=== PATIENT | female | born 1960 | race Caucasian/White ===

== ENCOUNTER 2025-07-08 03:16 | Inpatient (IN) | payer MEDICAID, SELFPAY ==
[2025-07-08] VITALS (40 sets, daily range): BP systolic 86–149; BP diastolic 62–110; PULSE 89–132; RESP 11–28; TEMP 36–36.7; O2SAT 55–98; BMI 24.3; BMI 23.5
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
--- NOTE | 2025-07-08 03:31 | EKG12_ITS ---
Test Reason : DYSRHYTHMIA Blood Pressure : */* mmHG Vent. Rate : 131 BPM Atrial Rate : 131 BPM P-R Int : 146 ms QRS Dur : 80 ms QT Int : 296 ms P-R-T Axes : 83 43 74 degrees QTcB Int : 437 ms Sinus tachycardia Possible Left atrial enlargement Nonspecific ST and T wave abnormality Abnormal ECG Confirmed by Omar Casanova ([id number]), editor managing newspaper REMI ALCARAZ ([id number]) on 07/10/2025 8:08:23 AM Referred By: NI Confirmed By: Omar Casanova
--- NOTE | 2025-07-08 03:31 | CT_ITS ---
PROCEDURE: CTA CHEST W/WO CONTRAST 07/08/2025 REASON FOR EXAM: HYPOXIA TECHNIQUE: Procedure Code: [id number] Modality: CT Procedure: CTA CHEST W/WO CONTRAST Multiplanar Sagittal and Coronal images were obtained. CONTRAST: isovue 370 VOLUME: 100 mL One or more dose reduction techniques were used (e.g., Automated exposure control, adjustment of the mA and/or kV according to patient size, use of iterative reconstruction technique). RADIATION DOSE SUMMARY: CTDI Vol 8.61 mGy DLP :291.94 mGycm COMPARISON: none FINDINGS: No evidence of any filling defect in the main pulmonary trunk and bilateral main pulmonary arteries, segmental and subsegmental pulmonary arteries to suggest acute or chronic pulmonary embolism. Dilated pulmonary artery and its branches. Patent ectatic thoracic aorta showing atherosclerotic changes. No intraluminal hypodense thrombi, dissecting intimal flaps or significant aneurysmal dilatation. No obvious cardiac abnormalities. Mild right and minimal left pleural effusion showing small fissural extension. Bilateral pulmonary patchy parenchymal veiling with smooth interlobular septae & scattered atelectatic plates. Findings are worrisome of pulmonary edema. Advise clinical correlation. Diffuse bilateral pulmonary interstitial and peribronchial thickening with cystic changes and areas of honeycombing, possibly interstitial lung disease. Bilateral pulmonary emphysema. No pathologically enlarged lymph nodes. Scanned osseous structures show Spondylotic changes with multilevel reduced vertebral bodies height. CT/CTA Chest W/WO Contrast IMPRESSION: No obvious pulmonary arterial thromboembolism. Mild right and minimal left pleural effusion showing small fissural extension. Bilateral pulmonary patchy parenchymal veiling with smooth interlobular septae & scattered atelectatic plates. Findings are worrisome of pulmonary edema. Advise clinical correlation. Diffuse bilateral pulmonary interstitial and peribronchial thickening with cyst ic changes and areas of honeycombing, possibly interstitial lung disease. Bilateral pulmonary emphysema. Reading Location: [facility] [address]
[2025-07-08 03:47] LABS: Hematocrit 42.2 % (37-47); Hemoglobin 15.0 g/dL (12.0-15.0); Immature Granulocytes Count 0.070 X10^3/uL (0.0-0.0); Mean Corp Hgb Conc 35.5 g/dL (32-36); Mean Corpuscular Volume 92.3 fL (81-99); Mean Platelet Vol. 12.9 fl (6.2-12.0); NRBC Flagged by Analyzer 0 % (0-5); Platelet Count 218 K/mm3 (150-450); RBC Distribution Width CV 12.5 % (11.6-14.6); RBC Distribution Width SD 42.5 fl (35.1-43.9); Red Blood Count 4.57 M/mm3 (4.2-5.4); White Blood Count 16.7 K/mm3 (4.4-11.0)
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
[2025-07-08 03:57] LABS: Partial Thromboplast Time 27.0 Seconds (24.1-36.2); Prothrombin Time (Protime)PT. 14.4 SECONDS (11.7-14.9)
--- NOTE | 2025-07-08 04:03 | ED.RN ---
This RN notified Dr. Andres of the patient continuing to be at 85% on 6L NC, the patient was put on 15L non-rebreather and called RT to initiate the patient on BiPAP. This RN had a lengthy conversation with the patient to educate the patient on the importance of BiPAP and keeping the mask on to help the patient's breathing and overall condition.
--- NOTE | 2025-07-08 04:11 | ED.RN ---
This RN attempted to do the patient's medication list and the patient was unable to tell this RN what medications the patient is on, nor why the patient is on. The patient states, I don't know I take something for my thyroid. The patient was unsure of the medication name or the dosage of the medication.
[2025-07-08 04:14] LABS: Magnesium 1.8 mg/dL (1.5-2.2)
[2025-07-08 04:18] LABS: Troponin T High Sensitivity 973 ng/L (<=14)
[2025-07-08 04:31] LABS: Anion Gap 21 (7-18); BUN 11 mg/dL (4-19); BUN/Creat Ratio 10.7 RATIO (10-20); Calcium,Total 9.8 mg/dL (7.6-11.0); Carbon Dioxide 15.1 mmol/L (20.0-29.0); Chloride 87 mmol/L (96-106); Estimated Creatinine Clearance 57.91 ml/min (50-250); Glucose 153 mg/dL (70-99); Potassium 4.0 mmol/L (3.5-5.1); Pro- Brain NATRIURETIC PEPTIDE 1598 pg/mL (<=900)
[2025-07-08 05:54] LABS: Troponin T High Sens 2 HR 1048 ng/L (<=14)
[2025-07-08] MEDS: HEPARIN/D5w 25,000 UNITS 25,000 UNITS/250 ML IV.SOLN. 8.7 UNITS CONT INF (06:12)
[2025-07-08] MEDS: Heparin Injection (Vial) 5,000 UNIT/ML VIAL 4000 UNIT IV (06:12)
--- NOTE | 2025-07-08 07:43 | HP.PCM.HOS_ITS ---
HPI - General General Date of Admission: 07/08/25 Chief Complaint: Shortness of breath HPI Narrative JAY HANCOCK, is a 65 F who presents severe shortness of breath and hypoxemia. Patient has medical history of emphysema and she quit smoking few years ago, not on home oxygen. She comes in with severe shortness of breath, cough with sputum and occasional wheezing. In the ED she was very hypoxemic requiring BiPAP, she was very anxious requiring couple of doses of Ativan while on BiPAP. CTA showed no PE but showed severe emphysematous changes as well as changes of interstitial lung disease with honeycombing in addition to possibility of pulmonary edema. EKG shows sinus tachycardia rate 131, incomplete right bundle branch block and upsloping ST segment depression with no T wave inversions Troponins around 1000 Cardiology was contacted and recommended heparin. Patient initially received loading dose of aspirin. She denies chest pain Patient will be admitted to ICU for respiratory failure, COPD exacerbation, and possible NSTEMI type I versus type II [facility] Medical History unable to obtain Home Medications ?Medication ?Instructions ?Recorded ?Last Taken ?Type Unobtainable 07/08/25 Unknown History Allergy/AdvReac Type Severity Reaction Status Date / Time No Known Allergies Allergy Verified 07/08/25 03:21 Family History unable to obtain Surgical History unable to obtain Social History Smoking Status: Current every day smoker tobacco type: cigarettes ROS Constitutional Constitutional: Denies fever(s) or poor appetite ENT HEENT: Reports none Cardiovascular Cardiovascular: Reports dyspnea; Denies chest pain Respiratory/Chest Respiratory/Chest: Reports cough; Denies wheezing Gastrointestinal Gastrointestinal: Denies abdominal pain or change in bowel habits Genitourinary Genitourinary: Denies change in urinary stream or dysuria Musculoskeletal Musculoskeletal: Denies arthralgias or myalgias Integumentary Integumentary: Reports none Neurologic Neurologic: Denies abnormal speech, dizziness, focal weakness, loss of vision or numbness Hematologic/Lymphatic Hematologic/Lymphatic: Reports none Patient's Goals Of Care . What would you like to achieve or improve as a result of your hospital stay?: G et better Vital Signs Vital Signs Vital Signs: 07/08/25 03:18 07/08/25 03:18 07/08/25 03:19 Temperature 97.8 F Temperature Source Oral Pulse Rate 129 H Respiratory Rate 22 H Respiratory Effort Short of Breath Labored Respiratory Depth Shallow Respiratory Pattern Tachypnea Blood Pressure 146/110 H Blood Pressure Mean 122 Pulse Ox 85 70 Oxygen Delivery Method Nasal Cannula Nasal Cannula Room Air Oxygen Flow Rate (L/min) 6 Fraction of Inspired Oxygen (FIO2) 07/08/25 03:19 07/08/25 03:55 07/08/25 04:00 Temperature Temperature Source Pulse Rate 132 H Respiratory Rate Respiratory Effort Short of Breath Labored Respiratory Depth Respiratory Pattern Tachypnea Blood Pressure 149/62 H Blood Pressure Mean 91 Pulse Ox 85 Oxygen Delivery Method Nasal Cannula Oxygen Flow Rate (L/min) 6 Fraction of Inspired Oxygen (FIO2) 07/08/25 04:03 07/08/25 04:07 07/08/25 04:07 Temperature Temperature Source Pulse Rate 124 H Respiratory Rate 21 H Respiratory Effort Respiratory Depth Respiratory Pattern Tachypnea Blood Pressure Blood Pressure Mean Pulse Ox 92 92 92 Oxygen Delivery Method Non-Rebreather Bi-pap Oxygen Flow Rate (L/min) 15 Fraction of Inspired Oxygen (FIO2) 40 40 07/08/25 04:30 07/08/25 05:00 07/08/25 05:42 Temperature Temperature Source Pulse Rate 124 H 120 H 119 H Respiratory Rate 24 H 20 H 28 H Respiratory Effort Respiratory Depth Respiratory Pattern Tachypnea Blood Pressure 110/96 H 120/103 H Blood Pressure Mean 100 108 Pulse Ox 92 93 94 Oxygen Delivery Method Bi-pap Bi-pap Oxygen Flow Rate (L/min) Fraction of Inspired Oxygen (FIO2) 50 07/08/25 06:00 07/08/25 06:38 07/08/25 07:00 Temperature 97.7 F L Temperature Source Pulse Rate 116 H 108 H 114 H Respiratory Rate 18 18 22 H Respiratory Effort Respiratory Depth Respiratory Pattern Blood Pressure 107/93 H 99/84 H 111/93 H Blood Pressure Mean 97 89 99 Pulse Ox 94 95 92 Oxygen Delivery Method Bi-pap Room Air Oxygen Flow Rate (L/min) Fraction of Inspired Oxygen (FIO2) Weight Weight: 72.4 kg Body Mass Index (BMI) 24.3 Physical Exam Const alert and oriented x3 HEENT normocephalic and head/scalp atraumatic Eyes EOMs intact bilaterally; Negative for no scleral icterus Neck supple Resp Resp Narrative: In respiratory distress, on BiPAP, bilateral crackles Cardio Negative for no murmurs Cardio Narrative: Tachycardic GI normal to inspection, nondistended, normoactive bowel sounds; Negative for non- tender no CVA tenderness Extremity no joint enlargement and no pedal edema Skin no rashes or lesions noted Neuro oriented x3 and moves all extremities Results Lab / Micro Data 07/08/25 03:45 07/08/25 03:15 Labs: Laboratory Results - last 24 hr 07/08/25 03:15: Sodium 124 L, Potassium 4.0, Chloride 87 L, Carbon Dioxide 15.1 L, Anion Gap 21 H, BUN 11, Creatinine 0.99, Estim Creat Clear Calc 57.91, Est GFR (MDRD) Non-Af 64, BUN/Creatinine Ratio 10.7, Glucose 153 H, Calcium 9.8, Magnesium 1.8, Troponin T High Sens 973 H*, NT pro BNP II 1598 H, TSH 0.547 07/08/25 03:45: WBC 16.7 H, RBC 4.57, Hgb 15.0, Hct 42.2, MCV 92.3, MCH 32.8 H, MCHC 35.5, RDW Std Deviation 42.5, RDW Coeff of Tabitha 12.5, Plt Count 218, MPV 12.9 H, Immature Gran % (Auto) 0.400, Neut % (Auto) 74.2 H, Lymph % (Auto) 16.1 L, [place] % (Auto) 8.8, Eos % (Auto) 0.1, Baso % (Auto) 0.4, Absolute Neuts (auto) 12.4 H, Absolute Lymphs (auto) 2.69, Nucleated RBC % 0, PT 14.4, INR 1.1, APTT 27.0 07/08/25 05:11: Troponin T Hi Sens 2 Hr 1048 H* Micro: Microbiology 07/08/25 04:00 Mucosa - Nose SARS-CoV-2, Influenza & RSV (PCR) - Final Imaging Radiology Impression Chest CTA 07/08/25 03:31 IMPRESSION: No obvious pulmonary arterial thromboembolism. Mild right and minimal left pleural effusion showing small fissural extension. Bilateral pulmonary patchy parenchymal veiling with smooth interlobular septae & scattered atelectatic plates. Findings are worrisome of pulmonary edema. Advise clinical correlation. Diffuse bilateral pulmonary interstitial and peribronchial thickening with cystic changes and areas of honeycombing, possibly interstitial lung disease. Bilateral pulmonary emphysema. Reading Location: [place] [address] Assessment & Plan Assessment/Plan (1) Acute respiratory failure with hypoxia: (2) Non-ST elevated myocardial infarction (non-STEMI): (3) COPD exacerbation: (4) Anxiety: (5) High anion gap metabolic acidosis: (6) Hyponatremia: PLAN: Plan Admission to ICU Continue BiPAP currently 50% FiO2, to keep O2 saturation 94 to 96% given the underlying coronary ischemia. Check blood gas to make sure she is well compensated for her metabolic acidosis and if there is any hypercapnia IV Precedex to improve tolerance with BiPAP. Aspirin 325 mg x 1, Plavix 300 g x 1, IV heparin, cardiology consultation Blood cultures, sputum cultures, urine Legionella and pneumococcus. CRP and procalcitonin for baseline, to be repeated if abnormal to help de-escalate antibiotics IV cefepime and vancomycin empirically for severe community-acquired pneumonia. IV steroids for the same indication and for COPD exacerbation. Check lactic acid Negative COVID-19, RSV and flu She received 1 dose of Lasix in the ED will monitor response Charges/Coding Visit Charges Inpatient E&M: 12642 Init Hosp L3
[2025-07-08 07:52] LABS: FI02 50.0; RR 12; SITE Not entered; VBG BASE EXCESS -3 mmol/L (-1.0-3.5); VBG PO2 41 mmHg (25-40); VBG SO2 79 % (50-70); VBG TCO2 22 mmol/L (23-33)
[2025-07-08 07:54] LABS: CRP < 3.00 mg/L (0.0-3.0); Troponin T High Sens 4 HR 898 ng/L (<=14)
[2025-07-08 08:03] LABS: Procalcitonin 0.03 ng/mL (<=0.10)
--- NOTE | 2025-07-08 08:30 | ECHOCS_ITS ---
Reason For Study Reason For Study: NSTEMI Procedure This was a 2D Doppler, Color Flow transthoracic echocardiogram. The patient is in sinus rhythm. The patient was scanned supine. Exam performed portable in ICU/CCU. Left Ventricle Normal LV size. Normal left ventricular thickness. The estimated ejection fraction is 25???30 %. Right Ventricle Normal RV size. Normal systolic function. Atria The left and right atria are normal. Mitral Valve Mild diffuse mitral valve thickening. There is no mitral valve stenosis. Mild (1+) mitral valve insufficiency. Tricuspid Valve Normal tricuspid valve. There is no tricuspid stenosis. Mild (1+) tricuspid valve insufficiency. Aortic Valve Trisinus/trileaflet aortic valve. Mild diffuse aortic valve thickening. There is no aortic valve stenosis. Trivial aortic valve insufficiency. Pulmonic Valve The pulmonic valve is not well visualized. There is no pulmonic valvular stenosis. Trivial pulmonic valve insufficiency. Great Vessels Ascending aorta normal size measured at 2.7 cm. Normal sized IVC that collapses with respiration/sniff. Pericardium/Pleural No pericardial effusion. MMode/2D Measurements & Calculations LVIDd: 4.3 cm IVSd: 0.77 cm LVOT diam: 1.8 cm LVIDs: 3.2 cm LVPWd: 0.83 cm LVOT area: 2.6 cm2 RVDd: 2.7 cm FS: 24.7 % LAV(MOD-bp): 34.5 ml LVAd ap4: 20.3 cm2 LVAd ap2: 19.4 cm2 LAV(MOD-bp) Indexed: 18.9 ml/m2 LVLd ap4: 6.7 cm LVLd ap2: 6.4 cm LAV(MOD-sp2): 30.2 ml EDV(MOD-sp4): 50.6 ml EDV(MOD-sp2): 49.9 ml LAV(MOD-sp4): 37.6 ml EDV(sp4-el): 52.2 ml EDV(sp2-el): 49.6 ml LVAs ap4: 16.2 cm2 LVAs ap2: 15.5 cm2 LVLs ap4: 5.7 cm LVLs ap2: 5.4 cm ESV(MOD-sp4): 37.8 ml ESV(MOD-sp2): 36.5 ml ESV(sp4-el): 38.8 ml ESV(sp2-el): 37.9 ml EF(MOD-sp4): 25.4 % EF(MOD-sp2): 26.8 % EF(sp4-el): 25.6 % SV(MOD-sp4): 12.9 ml SV(MOD-sp2): 13.4 ml EDV(MOD-bp): 50.9 ml SI(MOD-sp4): 7.0 ml/m2 SI(MOD-sp2): 7.3 ml/m2 ESV(MOD-bp): 38.4 ml EF(MOD-bp): 24.6 % SV(sp4-el): 13.4 ml Ao sinus diam: 2.9 cm LA A4 area: 14.8 cm2 LA dimension(2D): 3.7 cm RA A4 area: 8.8 cm2 TAPSE: 1.2 cm Time Measurements MV dec time: 0.14 sec Doppler Measurements & Calculations MV E max [place]: 106.7 cm/sec Lat Peak E' [place]: 6.6 cm/sec Med Peak E' [place]: 6.2 cm/sec MV A max [place]: 78.1 cm/sec E/E' lat: 16.2 E/E' med: 17.3 MV E/A: 1.4 Ao V2 max: 95.6 cm/sec LV V1 max: 87.1 cm/sec MV dec slope: 771.2 cm/sec2 Ao max P.7 mmHg LV V1 max P.0 mmHg Ao V2 mean: 77.9 cm/sec LV V1 mean P.7 mmHg Ao mean P.5 mmHg LV V1 mean: 60.2 cm/sec Ao V2 VTI: 14.2 cm LV V1 VTI: 12.5 cm AV (velocity ratio): 0.88 IGGY(I,D): 2.3 cm2 IGGY(V,D): 2.4 cm2 SV(LVOT): 32.7 ml PA V2 max: 60.1 cm/sec TR max [place]: 197.8 cm/sec TR max P.6 mmHg ECHO/Echo Complete Interpretation Summary The estimated ejection fraction is 25???30 %. Mild (1+) mitral valve insufficiency. Mild (1+) tricuspid valve insufficiency. Normal sized IVC that collapses with respiration/sniff. Ordering Physician: Omar Casanova Performed By: Tammy Tamez ZOE
[2025-07-08] MEDS: Albuterol 2.5 MG/3 ML VIAL.NEB. INHALATION (08:44)
--- NOTE | 2025-07-08 09:26 | EX.PCM.CONCC ---
Assessment & Plan Assessment/Plan (1) Acute hypoxemic respiratory failure: PLAN: Plan RECOMMENDATIONS: 1. Continue to wean FiO2 to maintain saturations at or above 90%. 2. Check respiratory viral panel. 3. Scheduled bronchodilators and steroids. 4. Consider diuresis, as tolerated by hemodynamics and renal function. 5. Continue heparin infusion, pending evaluation by cardiology. 6. Await results of echocardiogram. IMPRESSIONS: 1. Acute hypoxemic respiratory failure Clinical concern for multifactorial etiology with COPD exacerbation and NSTEMI contributing. I do not see anything focal on CT imaging of the chest to suggest pneumonia. Therefore, the patient will be continued on bronchodilators and steroids while awaiting additional cardiac workup. FiO2 will be weaned to maintain saturations at or above 90%. Will check respiratory viral panel as well. Depending on the results of the echocardiogram, consideration can be given to initiation of diuretic therapy. 2. NSTEMI Unclear if this is the primary event versus secondary to presenting hypoxemia. Echocardiogram is pending with cardiology consultation underway. Tentatively, the patient is being considered for coronary angiography on Sunday. 3. History of tobacco dependency, in remission/anxiety/panic attacks Complicates care, management, recovery and prognosis. Continue supportive measures as noted above. This note was generated with 1[employer] dictation software. It may contain incorrect words, spelling, and punctuation that were not noted in checking the note before signing. HPI Consult Data Date of Consult: 07/08/25 HPI Narrative Reason for Consultation: Acute respiratory failure HPI Narrative: The patient is a 65-year-old female, with a history as outlined below, who presented to the emergency department on July 07 with complaints of shortness of breath. The patient has an extensive tobacco abuse history, having smoked approximately 1 pack of cigarettes per day since the age of [age] years old, but indicated that she quit smoking completely 2 years ago. She reported that she was referred to a pulmonary provider by her PCP in [place] and underwent testing, which apparently demonstrated mild emphysema. She does not utilize supplemental oxygen at her baseline. She does have access to bronchodilator therapy, but indicated that the medication has never provided any symptom relief. The patient does have associated anxiety and occasional panic attacks. On presentation to the emergency department, the patient was noted to be afebrile but was notably tachycardic and tachypneic. Blood pressures were otherwise stable. Laboratory evaluation revealed a white blood cell count of 17,000. Coagulation profile was within normal limits. Chemistry profile was notable for a sodium of 124 with a chloride of 87 and creatinine of 0.9. Lactate was normal at 1.4. Troponin was increased at 973 with a BNP of 1598. Procalcitonin was within normal limits. TSH was normal. CTA chest was negative for pulmonary embolism but did reveal background emphysematous changes with interstitial septal thickening concerning for interstitial lung disease. The patient was ultimately placed on heated high flow oxygen along with a weight-based heparin infusion, bronchodilators and steroids. She was admitted to the medical intensive care unit for further management. [facility] Medical History unable to obtain Home Medications ?Medication ?Instructions ?Recorded ?Last Taken ?Type Unobtainable 07/08/25 Unknown History Allergy/AdvReac Type Severity Reaction Status Date / Time No Known Allergies Allergy Verified 07/08/25 03:21 Family History unable to obtain Surgical History unable to obtain Social History Smoking Status: Current every day smoker tobacco type: cigarettes ROS ROS Narrative 10 systems were reviewed with pertinent positives as noted in the HPI above. Physical Exam Const alert, oriented x3 and no apparent distress HEENT normocephalic, head/scalp atraumatic and moist oral mucous membranes Eyes PERRL, EOMs intact bilaterally and conjunctivae normal Neck supple General: trachea midline Chest inspection of chest normal Resp normal respiratory effort and no use of accessory muscles Effort and Inspection: able to speak in complete sentences Auscultation: rales and diminished lung sounds Cardio S1 normal heart sound and S2 normal heart sound Rate: tachycardic GI normal to inspection, nondistended, normoactive bowel sounds Extremity no clubbing, cyanosis or edema Skin no rashes or lesions noted Neuro CN's II-XII intact bilaterally, moves all extremities and no focal motor deficits Psych cooperative and affect normal Lab / Micro Data 07/08/25 03:45 07/08/25 03:15 Labs: Laboratory Results - last 24 hr 07/08/25 03:15: Sodium 124 L, Potassium 4.0, Chloride 87 L, Carbon Dioxide 15.1 L, Anion Gap 21 H, BUN 11, Creatinine 0.99, Estim Creat Clear Calc 57.91, Est GFR (MDRD) Non-Af 64, BUN/Creatinine Ratio 10.7, Glucose 153 H, Calcium 9.8, Magnesium 1.8, Troponin T High Sens 973 H*, NT pro BNP II 1598 H, TSH 0.547 07/08/25 03:45: WBC 16.7 H, RBC 4.57, Hgb 15.0, Hct 42.2, MCV 92.3, MCH 32.8 H, MCHC 35.5, RDW Std Deviation 42.5, RDW Coeff of Tabitha 12.5, Plt Count 218, MPV 12.9 H, Immature Gran % (Auto) 0.400, Neut % (Auto) 74.2 H, Lymph % (Auto) 16.1 L, [place] % (Auto) 8.8, Eos % (Auto) 0.1, Baso % (Auto) 0.4, Absolute Neuts (auto) 12.4 H, Absolute Lymphs (auto) 2.69, Nucleated RBC % 0, PT 14.4, INR 1.1, APTT 27.0 07/08/25 05:11: Troponin T Hi Sens 2 Hr 1048 H* 07/08/25 07:15: Troponin T Hi Sens 4Hr 898 H*, C-React Prot Ext Range < 3.00 07/08/25 07:30: Lactic Acid 1.4, Procalcitonin 0.03 Micro: Microbiology 07/08/25 04:00 Mucosa - Nose SARS-CoV-2, Influenza & RSV (PCR) - Final ABG Data ABG results: ABG 07/08/25 07:48 Specimen Type GEETA Sample Site Not entered O2 % 50.0 VBG pH 7.44 H VBG pO2 41 H VBG HCO3 21 L VBG Total CO2 22 L VBG O2 Sat (Calc) 79 H VBG Base Excess -3 L POC Mix VBG pCO2 Pt Tmp 30.4 L Respiration Rate 12 O2 Delivery Device Not entered Imaging Radiology Impression Chest CTA 07/08/25 03:31 IMPRESSION: No obvious pulmonary arterial thromboembolism. Mild right and minimal left pleural effusion showing small fissural extension. Bilateral pulmonary patchy parenchymal veiling with smooth interlobular septae & scattered atelectatic plates. Findings are worrisome of pulmonary edema. Advise clinical correlation. Diffuse bilateral pulmonary interstitial and peribronchial thickening with cystic changes and areas of honeycombing, possibly interstitial lung disease. Bilateral pulmonary emphysema. Reading Location: [facility] Charges/Coding Visit Charges Inpatient E&M: 15619 Init Hosp L3
--- NOTE | 2025-07-08 09:33 | PCM.HOSP.N ---
Hospitalist Note Patient was seen and examined briefly in ICU today, she is currently on Airvo, I talked with critical care about seeing the patient and they agreed to participate in her care. I talked briefly with cardiology, the plan appears to be to proceed with a cardiac catheterization this Sunday if the patient's respiratory status will tolerate the procedure. Patient indicated that she would not be against having this procedure done. At this time, patient continues to produce mucoid sputum, she is on Airvo at this time and appears comfortable at rest. Echocardiogram was performed today and results are pending at the time of this dictation. Continue bronchodilator treatment, IV corticosteroids, and empiric antibiotic coverage. Patient was given clopidogrel and placed on aspirin by the admitting hospitalist. 1 dose of IV furosemide was administered. Patient is currently on a heparin drip, she does not complain of any chest pain except when coughing. Adjustments to her medications will be made by critical care and cardiology.
[2025-07-08] MEDS: Cefepime HCl 2 GM in 0.9% Normal Saline (100mL MB+) 100 ML IV ×3 (09:35→21:54)
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
[2025-07-08] MEDS: Pantoprazole Sodium 40 MG in 0.9% Normal Saline (100mL MB+) 100 ML 300 MG IV (10:13)
[2025-07-08] MEDS: 0.9% Saline Lock 10 ML Syringe IV ×3 (10:13→23:53)
[2025-07-08] MEDS: Vancomycin HCl 1,000 MG in 0.9% Normal Saline (250mL Bag) 250 ML 250 MG IV (10:19)
--- NOTE | 2025-07-08 11:18 | PCM.RX.CS ---
Consult Antibiotic Management Pharmacy has been consulted to manage selected antibiotic: Vancomycin Type of Intervention Type of Consult: New start Suspected Infection Suspected Infection: Pneumonia Labs Labs: Sodium 124 mmol/L (135-145) L 07/08/25 03:15 Potassium 4.0 mmol/L (3.5-5.1) 07/08/25 03:15 Chloride 87 mmol/L (96-106) L 07/08/25 03:15 Carbon Dioxide 15.1 mmol/L (20.0-29.0) L 07/08/25 03:15 Anion Gap 21 (7-18) H 07/08/25 03:15 BUN 11 mg/dL (4-19) 07/08/25 03:15 Creatinine 0.99 mg/dL (0.70-1.20) 07/08/25 03:15 Est GFR (MDRD) Non-Af 64 (>60) 07/08/25 03:15 BUN/Creatinine Ratio 10.7 RATIO (10-20) 07/08/25 03:15 Glucose 153 mg/dL (70-99) H 07/08/25 03:15 Microbiology Microbiology: Microbiology 07/08/25 04:00 Mucosa - Nose SARS-CoV-2, Influenza & RSV (PCR) - Final Dosing Weight Weight used for dosin.1 kg Estimated Creatinine Clearance Estimated Creatinine Clearance: 57.91 Goal Trough Goal Trough: 15-20 mcg/mL Pharmacy Plan for Drug Dosing Pharmacy Plan for Drug Dosing: NEW START IV VANCOMYCIN Consulting Physician: Dr. Pichardo Indication: Community-Acquired Pneumonia Goal Trough: 15-20 SrCr: 0.99 CrCl: 57.91 ml/min Comments: Received standard initial dose 1000mg x1 @ 10:19 07/08/25 Vancomycin Dose: 750mg Q12H, next dose @ 22:00 07/08/25 Pending Level: 07/09/25 @ 21:30 Pharmacy Service will continue to monitor and adjust dosing as required. Follow-Up Labs Follow-Up Labs: Trough: Vancomycin (07/09/25 @ 21:30)
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
[2025-07-08 13:03] LABS: Partial Thromboplast Time 144.7 Seconds (24.1-36.2)
[2025-07-08 18:35] LABS: Cholesterol 180 mg/dL (<=200); Low Density Lipoprotein Calc. 69 mg/dL; Triglycerides 64 mg/dL; Very Low Density Lipoprotein 13 mg/dL (5-40); cholesterol:hdl ratio screen 1.83
[2025-07-08 22:35] LABS: Partial Thromboplast Time 30.8 Seconds (24.1-36.2)
[2025-07-08] MEDS: Vancomycin HCl 750 MG in 0.9% Normal Saline (250mL Bag) 250 ML 250 MG IV (22:39)
[2025-07-08] MEDS: Heparin Nomogram Adjustment 5,000 UNIT/ML VIAL IV (23:16)
[2025-07-09] VITALS (30 sets, daily range): BP systolic 61–113; BP diastolic 46–77; PULSE 76–103; RESP 12–45; TEMP 36.3–37.1; O2SAT 50–99; BMI 23.6
--- NOTE | 2025-07-09 00:25 | PCM.HOSP.N ---
Hospitalist Note Pt reported to staff that she takes her sister's valium to control her anxiety while at home. She is requesting Ativan, but d/t concerns regarding her respiratory status, I opted to order hydroxyzine 50mg QHS PRN.
[2025-07-09] MEDS: hydrOXYzine PAM 25 MG Capsule 50 MG PO (00:33)
[2025-07-09] MEDS: Cefepime HCl 2 GM in 0.9% Normal Saline (100mL MB+) 100 ML IV ×3 (05:18→21:22)
[2025-07-09] MEDS: 0.9% Saline Lock 10 ML Syringe IV (05:18)
[2025-07-09 05:29] LABS: Hematocrit 34.1 % (37-47); Hemoglobin 12.2 g/dL (12.0-15.0); Immature Granulocytes Count 0.060 X10^3/uL (0.0-0.0); Mean Corp Hgb Conc 35.8 g/dL (32-36); Mean Corpuscular Volume 92.4 fL (81-99); Mean Platelet Vol. 13.3 fl (6.2-12.0); NRBC Flagged by Analyzer 0 % (0-5); Platelet Count 117 K/mm3 (150-450); RBC Distribution Width CV 12.8 % (11.6-14.6); RBC Distribution Width SD 43.8 fl (35.1-43.9); Red Blood Count 3.69 M/mm3 (4.2-5.4); White Blood Count 12.1 K/mm3 (4.4-11.0)
[2025-07-09 05:38] LABS: Partial Thromboplast Time 70.0 Seconds (24.1-36.2)
--- NOTE | 2025-07-09 06:49 | PN.HOSP_ITS ---
Reason for Visit Chief Complaint: Shortness of breath Subjective Subjective Patient denies any acute issues. Still has an intermittent cough production of white sputum. States that what we are doing here for is helping her clear out her lungs. We discussed the findings in the echocardiogram and need for cardiac catheterization tomorrow and she voiced understanding. We have been able to wean her oxygen some. Objective Data Objective Data Vital Signs: Vital Signs Temp Pulse Resp BP Pulse Ox O2 Del Method O2 Flow Rate 98.3 F 83 21 H 86/71 L 94 Airvo 50 07/09/25 05:00 07/09/25 05:15 07/09/25 05:15 07/09/25 05:00 07/09/25 05:15 07/09/25 05:00 07/09/25 05:00 FiO2 50 07/09/25 05:15 Oxygen Flow Rate (L/min) 50 Oxygen Delivery Method Airvo Weight: 70.5 kg Body Mass Index (BMI) 23.6 Intake & Output: Intake and Output for Last 24 Hours 07/07/25 07/08/25 07/09/25 23:59 23:59 23:59 Intake Total 1276.08 / 1276.08 150.30 / 150.30 Output Total 800 / 800 950 / 950 Balance 476.08 / 476.08 -799.70 / -799.70 Lab / Micro Data 07/09/25 07:46 07/09/25 07:05 Labs: Laboratory Results - last 24 hr 07/08/25 07:15: Troponin T Hi Sens 4Hr 898 H*, C-React Prot Ext Range < 3.00 07/08/25 07:30: Lactic Acid 1.4, Triglycerides 64, Cholesterol 180, LDL Cholesterol, Calc 69, VLDL Cholesterol 13, HDL Cholesterol 98, Cholesterol/HDL Ratio 1.83, Procalcitonin 0.03 07/08/25 12:30: APTT 144.7 H* 07/08/25 21:19: APTT Cancelled 07/08/25 21:50: APTT 30.8 07/09/25 05:13: WBC 12.1 H, RBC 3.69 L, Hgb 12.2, Hct 34.1 L, MCV 92.4, MCH 33.1 H, MCHC 35.8, RDW Std Deviation 43.8, RDW Coeff of Tabitha 12.8, Plt Count 117 L, M PV 13.3 H, Immature Gran % (Auto) 0.500, Neut % (Auto) 83.5 H, Lymph % (Auto) 8.0 L, Coffee % (Auto) 7.9, Eos % (Auto) 0.0, Baso % (Auto) 0.1, Absolute Neuts (auto) 10.1 H, Absolute Lymphs (auto) 0.97, Nucleated RBC % 0, APTT 70.0 H Micro: Microbiology 07/08/25 11:15 Mucosa - Nasopharyngeal Coronavirus COVID-19 PCR - Final 07/08/25 11:15 Mucosa - Nasopharyngeal Respiratory Panel (PCR) - Final 07/08/25 09:30 Sputum, Expectorated/Coughed Gram Stain - Final 07/08/25 11:30 Urine, Clean Catch Legionella Antigen - Final 07/08/25 11:30 Urine, Clean Catch Streptococcus pneumoniae Antigen (M - Final 07/08/25 04:00 Mucosa - Nose SARS-CoV-2, Influenza & RSV (PCR) - Final ABG Data ABG results: ABG 07/08/25 07:48 Specimen Type GEETA Sample Site Not entered O2 % 50.0 VBG pH 7.44 H VBG pO2 41 H VBG HCO3 21 L VBG Total CO2 22 L VBG O2 Sat (Calc) 79 H VBG Base Excess -3 L POC Mix VBG pCO2 Pt Tmp 30.4 L Respiration Rate 12 O2 Delivery Device Not entered Radiography Diagnostic Testing: Radiology Impression Echocardiogram 07/08/25 08:30 Interpretation Summary The estimated ejection fraction is 25???30 %. Mild (1+) mitral valve insufficiency. Mild (1+) tricuspid valve insufficiency. Normal sized IVC that collapses with respiration/sniff. Ordering Physician: Omar Casanova Performed By: Tammy Tamez RDCS Rhythm Strip Rhythm Strip: Sinus Tach (Sinus tachycardia no other significant arrhythmias appreciated) Physical Exam Const alert, oriented x3, no apparent distress, average body habitus and well nourished; Negative for healthy appearing Constitutional Narrative: Cooperative, upper middle-aged, white female, sitting up in bed watching television, on Airvo, appears older than stated age HEENT head/scalp atraumatic and moist oral mucous membranes HEENT Narrative: Dentures in place, Mallampati 2, no thrush Head and Scalp: normocephalic Eyes conjunctivae normal Eyes Narrative: No scleral icterus Neck supple Neck Narrative: Trachea midline Resp no retractions, no use of accessory muscles and clear to auscultation bilaterally Resp Narrative: Diffusely diminished but clear, no signs of respiratory distress with only mild tachypnea on Airvo at 45 L/min and 45% FiO2 Auscultation: Negative for crackles, rhonchi or wheezes Cardio regular rate, regular rhythm, S1 normal heart sound, S2 normal heart sound, no murmurs, no rub, no gallops and no clicks GI normal to inspection, nondistended, normoactive bowel sounds, soft to palpation and non-tender Extremity no clubbing, cyanosis or edema Extremity Narrative: Decreased lean muscle mass, radial and pedal pulses are 2+ Neuro moves all extremities and no focal motor deficits Speech: speech normal Psych affect normal Psych Narrative: Very pleasant, eye contact good and patient interacts appropriately Assessment & Plan Assessment/Plan (1) Acute hypoxemic respiratory failure: (2) Non-ST elevated myocardial infarction (non-STEMI): (3) Acute HFrEF (heart failure with reduced ejection fraction): (4) Leukocytosis: (5) Thrombocytopenia: PLAN: Plan Acute hypoxic respiratory failure-suspect multifactorial - Patient with signs of acute decompensated heart failure on imaging however exam is not as consistent with this/emphysematous changes noted as well - COVID/flu/RSV unremarkable - Respiratory viral panel unremarkable - Sputum cultures pending but Gram stain seems more consistent with oral mirta - Bumex 2 mg IV x 1 dose - Not oxygen dependent at baseline but currently on Airvo at 45 L/min and 45% FiO2 - Wean as able - Will need ambulatory pulse ox prior to discharge - Continue nebulizers - Continue steroids - Continue I-S and Acapella - Continue empiric antibiotics - Procalcitonin was 0.03 and I do anticipate we should be able to discontinue antibiotics in the next 24 hours once cultures are finalized NSTEMI - Continue aspirin - continue atorvastatin -Lipids were obtained and showed a total cholesterol 180 with an LDL of 69/HDL of 98 and triglyceride of 64 - Blood pressure is too soft right now to initiate any kind of beta-blockade - Echocardiogram shows reduced EF at 25 to 30% with global dysfunction - Plan is for cardiac catheterization tomorrow - Discontinue heparin due to significant drop in platelets - Case discussed with keyboard operator Acute thrombocytopenia - Platelet count normal on arrival at 218,000 - Has had previous heparin exposure with unknown timeframe - Platelet count dropped 50% in the last 24 hours - Concern for HIT with heparin drip being on board--> discussed with cardiology and okay to discontinue heparin drip - Avoid heparin and low molecular weight heparin products - HIT antibody (PF4 heparin antibody) ordered and sent - SCDs initiated for DVT prophylaxis Acute HFrEF - Newly identified reduced ejection fraction at 25 to 30% - Does not appear to be significantly decompensated but imaging is suggestive of some mild volume overload - She also was profoundly hyponatremic at presentation - Will give Bumex x 1 dose - Plan is for ischemic workup with cardiac catheterization tomorrow - Blood pressure too soft currently to tolerate any goal-directed therapy - Continue to monitor - Cardiology is following-->appreciate input Leukocytosis - Suspect related to steroid use - Infectious workup is in progress - Continue antibiotics until cultures are resulted and then discontinue if unremarkable Hyponatremia - 120 on arrival - Was given 1 dose of Lasix and now up to 132 - No further workup currently since improving but may be related to volume overload - TSH is within normal limits Hypothyroidism - Continue levothyroxine COPD - Suspect undiagnosed but patient has emphysematous changes on imaging - Once respiratory status stabilizes will need outpatient PFTs and 6-minute walk test - Continue treatment as noted above - May need chronic inhalers at the time of discharge - Encouraged ongoing tobacco cessation Substance abuse - Patient reported that she takes her sisters Valium on occasion - with respiratory status would avoid benzodiazepines and monitor for any signs of withdrawal - Also reported history of methamphetamine use Tobacco abuse - Recommend cessation DVT prophylaxis - Discontinue heparin drip due to significant drop in platelet counts - SCDs ordered CODE STATUS - Full code Charges/Coding Visit Charges Inpatient E&M: 55879 Subs Hosp L3
[2025-07-09 07:20] LABS: Prothrombin Time (Protime)PT. 14.5 SECONDS (11.7-14.9)
[2025-07-09] MEDS: FLU VACCINE 2025-26(6MOS UP) 45 MCG/0.5 ML SYRINGE IM (07:56)
[2025-07-09] MEDS: Pantoprazole Sodium 40 MG in 0.9% Normal Saline (100mL MB+) 100 ML 330 MG IV (07:56)
[2025-07-09 08:03] LABS: Platelet Count 105 K/mm3 (150-450)
[2025-07-09 08:46] LABS: Magnesium 2.1 mg/dL (1.5-2.2)
[2025-07-09 08:49] LABS: AST(SGOT) 66 U/L (<=31); Alanine Aminotransfer ALT/SGPT 22 U/L (<=34); Albumin, Serum 3.8 g/dL (3.4-4.8); Alkaline Phosphatase 67 U/L (35-104); Anion Gap 11 (7-18); BUN 17 mg/dL (4-19); BUN/Creat Ratio 23.6 RATIO (10-20); Calcium,Total 8.5 mg/dL (7.6-11.0); Carbon Dioxide 19.9 mmol/L (20.0-29.0); Chloride 101 mmol/L (96-106); Estimated Creatinine Clearance 80.75 ml/min (50-250); Globulin 2.1 g/dL (2.2-4.2); Glucose 157 mg/dL (70-99); Potassium 4.8 mmol/L (3.5-5.1)
--- NOTE | 2025-07-09 09:08 | PN.CARD_ITS ---
Subjective Subjective Patient seen and examined reports some fatigue and weakness but denies any other concerning cardiovascular issues. Remains on high flow nasal cannula with fair O2 saturation. Overall hemodynamically stable blood pressure borderline low. Denies any chest pain continues to have some reported mild shortness of breath. New information obtained through further discussion with the patient surrounding her cardiomyopathy and it appears that she reports having a heart attack 1 year ago. She does not remember getting a heart catheterization at that time or being advised that she had cardiomyopathy. She also admits to extensive history of drug abuse including methamphetamine with apparent last use 1 year ago. She states that she started rehab and has not been using any drugs recently except for taking the Adderall recently that was not hers. Objective Data Vital Signs: Vital Signs Temp Pulse Resp BP Pulse Ox O2 Del Method O2 Flow Rate 97.5 F L 94 21 H 91/69 94 Airvo 45 07/09/25 08:00 07/09/25 08:00 07/09/25 08:00 07/09/25 08:00 07/09/25 08:00 07/09/25 08:00 07/09/25 08:00 FiO2 45 07/09/25 08:00 Oxygen Flow Rate (L/min) 45 Oxygen Delivery Method Airvo Weight: 155 lb 6.814 oz Body Mass Index (BMI) 23.6 Intake & Output: Intake and Output for Last 24 Hours 07/07/25 07/08/25 07/09/25 23:59 23:59 23:59 Intake Total 1276.08 / 1276.08 271.74 / 271.74 Output Total 800 / 800 950 / 950 Balance 476.08 / 476.08 -678.26 / -678.26 Lab / Micro Data Attestation: I reviewed the patient's lab results. Lab results narrative: Labs reviewed and pertinent results discussed with the patient 07/09/25 07:46 07/09/25 07:05 Labs: Laboratory Results - last 24 hr 07/08/25 07:05: Phosphorus 2.9 07/08/25 07:30: Triglycerides 64, Cholesterol 180, LDL Cholesterol, Calc 69, VLDL Cholesterol 13, HDL Cholesterol 98, Cholesterol/HDL Ratio 1.83 07/08/25 12:30: APTT 144.7 H* 07/08/25 21:19: APTT Cancelled 07/08/25 21:50: APTT 30.8 07/09/25 05:13: WBC 12.1 H, RBC 3.69 L, Hgb 12.2, Hct 34.1 L, MCV 92.4, MCH 33.1 H, MCHC 35.8, RDW Std Deviation 43.8, RDW Coeff of Tabitha 12.8, Plt Count 117 L, M PV 13.3 H, Immature Gran % (Auto) 0.500, Neut % (Auto) 83.5 H, Lymph % (Auto) 8.0 L, Christian % (Auto) 7.9, Eos % (Auto) 0.0, Baso % (Auto) 0.1, Absolute Neuts (auto) 10.1 H, Absolute Lymphs (auto) 0.97, Nucleated RBC % 0, PT Cancelled 07/09/25 05:13: PT 14.5, INR Cancelled 07/09/25 05:13: INR 1.1, APTT 70.0 H 07/09/25 05:13: APTT Cancelled 07/09/25 07:05: Sodium 132 L, Potassium 4.8, Chloride 101, Carbon Dioxide 19.9 L , Anion Gap 11, BUN 17, Creatinine 0.71, Estim Creat Clear Calc 80.75, Est GFR (MDRD) Non-Af 94, BUN/Creatinine Ratio 23.6 H, Glucose 157 H, Calcium 8.5, Magnesium 2.1, Total Bilirubin 0.65, AST 66 H, ALT 22, Alkaline Phosphatase 67, Total Protein 6.0, Albumin 3.8, Globulin 2.1 L, Albumin/Globulin Ratio 1.8 07/09/25 07:46: Plt Count 105 L Micro: Microbiology 07/08/25 11:15 Mucosa - Nasopharyngeal Coronavirus COVID-19 PCR - Final 07/08/25 11:15 Mucosa - Nasopharyngeal Respiratory Panel (PCR) - Final 07/08/25 09:30 Sputum, Expectorated/Coughed Gram Stain - Final 07/08/25 11:30 Urine, Clean Catch Legionella Antigen - Final 07/08/25 11:30 Urine, Clean Catch Streptococcus pneumoniae Antigen (M - Final 07/08/25 04:00 Mucosa - Nose SARS-CoV-2, Influenza & RSV (PCR) - Final Rhythm Strip Rhythm Strip: Sinus Rhythm (Sinus rhythm with occasional sinus tachycardia. No other significant arrhythmias appreciated) Cardiology Labs/Tests 07/08/25 07:05: Phosphorus 2.9 07/08/25 07:30: Triglycerides 64, Cholesterol 180, VLDL Cholesterol 13, HDL Cholesterol 98, Cholesterol/HDL Ratio 1.83 07/08/25 12:30: APTT 144.7 H* 07/08/25 21:19: APTT Cancelled 07/08/25 21:50: APTT 30.8 07/09/25 05:13: WBC 12.1 H, RBC 3.69 L, Hgb 12.2, Hct 34.1 L, MCV 92.4, MCH 33.1 H, MCHC 35.8, Plt Count 117 L, MPV 13.3 H, Immature Gran % (Auto) 0.500, Neut % (Auto) 83.5 H, Lymph % (Auto) 8.0 L, Christian % (Auto) 7.9, Eos % (Auto) 0.0, Baso % (Auto) 0.1, Absolute Neuts (auto) 10.1 H, Nucleated RBC % 0, PT Cancelled 07/09/25 05:13: PT 14.5, INR Cancelled 07/09/25 05:13: INR 1.1, APTT 70.0 H 07/09/25 05:13: APTT Cancelled 07/09/25 07:05: Sodium 132 L, Potassium 4.8, Chloride 101, Carbon Dioxide 19.9 L , Anion Gap 11, BUN 17, Creatinine 0.71, Est GFR (MDRD) Non-Af 94, B UN/Creatinine Ratio 23.6 H, Glucose 157 H, Calcium 8.5, Magnesium 2.1, Total Bilirubin 0.65 07/09/25 07:46: Plt Count 105 L Rhythm: EKG: ECHO: Stress Test: Cardiac Cath: PCI: CT Surgery: Holter monitor: EPS: PPM: CXR: Chest CT Scan: Radiography Diagnostic Testing: Radiology Impression Echocardiogram 07/08/25 08:30 Interpretation Summary The estimated ejection fraction is 25-30 %. Mild (1+) mitral valve insufficiency. Mild (1+) tricuspid valve insufficiency. Normal sized IVC that collapses with respiration/sniff. Ordering Physician: Omar Casanova Performed By: Tammy Tamez, ZOE Physical Exam Const alert, oriented x3 and no apparent distress Resp normal respiratory effort and clear to auscultation bilaterally Resp Narrative: Decreased breath sounds. No wheezes, rales, or rhonchi appreciated this morning Cardio regular rate, regular rhythm, no murmurs, no rub and no gallops Extremity no pedal edema Psych Psych Narrative: Normal mood and affect Assessment & Plan Assessment/Plan (1) Non-ST elevated myocardial infarction (non-STEMI): PLAN: ? Patient with significantly elevated troponin however multiple potential etiology for elevation. Currently considered likely type II NSTEMI related to hypoxemia as well as CHF exacerbation. ? Echocardiogram with severely reduced ejection fraction estimated at 25-30%. ? Due to thrombocytopenia will discontinue heparin drip. Some concern for HIT. 4 T-score of 4 indicating intermediate risk. ? Long discussion with patient and will proceed with nephro consultation/coronary angiogram tomorrow. Femoral access planned. We discussed the risk, benefit, and alternatives and patient agrees to proceed. Risk including but not limited to , stroke, heart attack, bleeding, infection, damage to the blood vessels, or damage to kidney function potentially requiring dialysis. ? N.p.o. at midnight ? Continue aspirin but will hold off on beta-korey. ? Cardiology will follow (2) Acute on chronic systolic and diastolic heart failure, NYHA class 3: PLAN: ? As noted above echocardiogram notes severely reduced ejection fraction of 25-30%. Suspect this to be possibly related to drug abuse history ? Patient denies having a ischemic evaluation therefore as noted above will plan to proceed with left heart catheterization/coronary angiogram in the face of noted NSTEMI ? Still holding off on GDMT. Blood pressure currently borderline low. Hopefully can start on medications tomorrow. ? No significant volume overload appreciated on physical exam. Will hold off on aggressive diuresis for now however check LVEDP tomorrow and if noted to be elevated can attempt further diuresis. Plan of care discussed with hospitalist team. (3) Acute respiratory failure with hypoxia: PLAN: ? Likely related to COPD exacerbation as well as exacerbation of heart failure ? Wean O2 as tolerated. Appreciate help with management from hospitalist team as well as pulmonology/critical care (4) Thrombocytopenia: PLAN: ? Patient with significant drop in platelet count. As noted above some concern for HIT ? Discontinue heparin drip ? Further workup and evaluation per hospitalist team ? If intervention is required surrounding her coronary artery disease will plan to use bivalirudin PLAN: Plan ? Plan as above continue current treatment. Discontinue heparin drip. Plan for left heart catheterization/coronary angiogram tomorrow ? Further workup and evaluation for potential HIT by hospitalist team. ? Will attempt to obtain records from outside hospital regarding patient's heart attack from last year. Charges/Coding Visit Charges Inpatient E&M: 05949 [facility] Hosp L3
--- NOTE | 2025-07-09 09:10 | PN.CC_ITS ---
Objective Data Objective Data Vital Signs: Vital Signs Last response 3 Temperature 36.4 C L 07/09/25 08:00 Temperature Source Oral 07/09/25 08:00 Pulse Rate 94 07/09/25 08:00 Respiratory Rate 21 H 07/09/25 08:00 Respiratory Effort Normal, Non-Labored 07/09/25 08:00 Respiratory Depth Normal 07/09/25 08:00 Respiratory Pattern Normal 07/09/25 08:00 Blood Pressure 91/69 07/09/25 08:00 Blood Pressure Mean 76 07/09/25 08:00 Blood Pressure Source Monitor 07/09/25 08:00 Blood Pressure Position Semi-Fowlers 07/09/25 08:00 Blood Pressure Location Right Arm 07/09/25 08:00 Pulse Ox 94 07/09/25 08:00 Oxygen Delivery Method Airvo 07/09/25 08:00 Oxygen Flow Rate (L/min) 45 07/09/25 08:00 Fraction of Inspired Oxygen (FIO2) 45 07/09/25 08:00 EtCo2 - Document during CPR and with ROSC 50 07/09/25 04:00 I&O: I&O Last 24 Hours 3 07/08/25 07/08/25 07/09/25 11:59 23:59 11:59 Intake Total 470 / 1276.08 806.08 / 1276.08 271.74 / 271.74 Output Total 800 / 800 950 / 950 Balance 470 / 476.08 6.08 / 476.08 -678.26 / -678.26 I&O: Total Stay 3 07/08/25 03:16 thru 07/09/25 08:55 Intake Total 1547.82 Output Total 1750 Balance -202.18 Current Meds Ordered / Administered: Current meds ordered / Administered 3 Generic Name Dose Route Start Last Admin Trade Name Freq PRN Reason Stop Dose Admin Albuterol Sulfate 2.5 mg 07/08/25 08:00 07/08/25 08:44 Albuterol 2.5 Mg/3 Ml Vial.Neb. INHALATION 2.5 mg Q2H PRN Administration SOB &/OR WHEEZING Albuterol/Ipratropium 3 ml 07/08/25 09:30 07/09/25 07:31 Ipratropium/Albuterol Sulfate 3 Ml Ampul.Neb INHALATION 3 ml Q6HWA.RT JANES Administration Aspirin 81 mg 07/09/25 08:00 07/09/25 07:55 Aspirin 81 Mg Tab.Chew PO 81 mg BREAKFAST JANES Administration Atorvastatin Calcium 40 mg 07/08/25 22:00 07/08/25 21:55 Atorvastatin Calcium 40 Mg Tablet PO 40 mg QHS JANES Administration Bumetanide 2 mg 07/09/25 10:00 07/09/25 07:56 Bumetanide 1 Mg/4 Ml Vial IV 2 mg BIDLX JANES Administration Protocol Hydroxyzine Pamoate 50 mg 07/09/25 00:25 07/09/25 00:33 Hydroxyzine Aleyda 25 Mg Capsule PO 50 mg QHS PRN PRN Administration ANXIETY/RESTLESSNESS/SLEEP Cefepime HCl 2 gm/ Sodium 100 mls @ 200 mls/hr 07/08/25 08:00 07/09/25 05:48 Chloride IV Infused Q8 JANES Infusion Vancomycin IV-PHARMACY TO DOSE 500 mls @ 250 mls/hr 07/08/25 08:30 1 each/ Sodium Chloride IV PRN PRN Rx to Dose Protocol Pantoprazole Sodium 40 mg/ 100 mls @ 300 mls/hr 07/08/25 10:00 07/09/25 08:30 Sodium Chloride IV Infused Q24 JANES Infusion Sodium Chloride 250 mls @ 15 mls/hr 07/08/25 08:26 IV .[id number] PRN Saline Flush Sodium Chloride 250 mls @ 15 mls/hr 07/08/25 08:26 IV .[id number] PRN Additional IVPB Infusion Vancomycin HCl 750 mg/ Sodium 265 mls @ 250 mls/hr 07/08/25 22:00 07/08/25 23:43 Chloride IV Infused Q12H JANES Infusion Influenza Virus Vacc Trival Recomb 45 mcg 07/09/25 10:00 07/09/25 07:56 Flu Vaccine 2024-(6mos Up) 45 Mcg/0.5 Ml Syringe IM 07/09/25 10:01 45 mcg .ONCE ONE Administration Levothyroxine Sodium 88 mcg 07/10/25 06:00 Levothyroxine 88 Mcg Tablet PO DAILY@0600 JANES Methylprednisolone Sodium Succinate 40 mg 07/08/25 18:00 07/09/25 05:18 Methylprednisolone Sod Succ 40 Mg/Ml Vial IV 40 mg Q12H JANES Administration Sodium Chloride 10 - 40 ml 07/08/25 08:26 07/09/25 05:18 0.9% Saline Lock 10 Ml Syringe IV 10 ml UD PRN Administration SALINE FLUSH Vancomycin Protocol 1 lab 07/09/25 20:30 Vancomycin Trough/Random Due 07/09/25 22:30 DAILY REPLACED BY [facility] Lab / Micro Data 07/09/25 07:46 07/09/25 07:05 Labs: Laboratory Results - last 24 hr 07/08/25 07:05: Phosphorus 2.9 07/08/25 07:30: Triglycerides 64, Cholesterol 180, LDL Cholesterol, Calc 69, VLDL Cholesterol 13, HDL Cholesterol 98, Cholesterol/HDL Ratio 1.83 07/08/25 12:30: APTT 144.7 H* 07/08/25 21:19: APTT Cancelled 07/08/25 21:50: APTT 30.8 07/09/25 05:13: WBC 12.1 H, RBC 3.69 L, Hgb 12.2, Hct 34.1 L, MCV 92.4, MCH 33.1 H, MCHC 35.8, RDW Std Deviation 43.8, RDW Coeff of Tabitha 12.8, Plt Count 117 L, M PV 13.3 H, Immature Gran % (Auto) 0.500, Neut % (Auto) 83.5 H, Lymph % (Auto) 8.0 L, [place] % (Auto) 7.9, Eos % (Auto) 0.0, Baso % (Auto) 0.1, Absolute Neuts (auto) 10.1 H, Absolute Lymphs (auto) 0.97, Nucleated RBC % 0, PT Cancelled 07/09/25 05:13: PT 14.5, INR Cancelled 07/09/25 05:13: INR 1.1, APTT 70.0 H 07/09/25 05:13: APTT Cancelled 07/09/25 07:05: Sodium 132 L, Potassium 4.8, Chloride 101, Carbon Dioxide 19.9 L , Anion Gap 11, BUN 17, Creatinine 0.71, Estim Creat Clear Calc 80.75, Est GFR (MDRD) Non-Af 94, BUN/Creatinine Ratio 23.6 H, Glucose 157 H, Calcium 8.5, Magnesium 2.1, Total Bilirubin 0.65, AST 66 H, ALT 22, Alkaline Phosphatase 67, Total Protein 6.0, Albumin 3.8, Globulin 2.1 L, Albumin/Globulin Ratio 1.8 07/09/25 07:46: Plt Count 105 L Micro: Microbiology 07/08/25 11:15 Mucosa - Nasopharyngeal Coronavirus COVID-19 PCR - Final 07/08/25 11:15 Mucosa - Nasopharyngeal Respiratory Panel (PCR) - Final 07/08/25 09:30 Sputum, Expectorated/Coughed Gram Stain - Final 07/08/25 11:30 Urine, Clean Catch Legionella Antigen - Final 07/08/25 11:30 Urine, Clean Catch Streptococcus pneumoniae Antigen (M - Final 07/08/25 04:00 Mucosa - Nose SARS-CoV-2, Influenza & RSV (PCR) - Final Rhythm Strip Rhythm Strip: Sinus Tach (Sinus tachycardia no other significant arrhythmias appreciated) Imaging Radiology Impression Echocardiogram 07/08/25 08:30 Interpretation Summary The estimated ejection fraction is 25???30 %. Mild (1+) mitral valve insufficiency. Mild (1+) tricuspid valve insufficiency. Normal sized IVC that collapses with respiration/sniff. Ordering Physician: Omar Casanova Performed By: Tammy Tamez RDCS Assessment and Plan . Assessment and plan: Critical Care Time: The entirety of this encounter was done via Telemedicine Subjective Subjective S: Pt seen and examined. No acute events. Pt denies sig SOB or cough this AM. On HHFNC 45L/45%. PE: General: Well developed, acute/chronically ill female; in no distress; +HHFNC HEENT: anicteric Sclera, nl nose; supple neck, no masses Cardiovascular: S1/S2; No rubs, gallops; no displaced PM Respiratory: diminished; no crackles, wheezes, or rhonchi Abdominal: Non-tender; Non distended; hypoBS x 4; No Hepatosplenomegaly Extremities: Warm, well perfused; No clubbing, cyanosis; capillary refill < 2 sec Skin: intact, no rashes Neurological: A&Ox3; no gross deficits appreciated A/P: #Acute hypoxemic respiratory failure #AECOPD #NSTEMI #Thrombocytopenia #Hx methamphetamine abuse (last reported use 1 year ago) #Tobacco abuse (reports quiting aside from smoking ~20 cig this year) #Anxiety/panic attacks -Cont HHFNC; titrate to keep sats ~90-92% -TTE with reduced EF 25-30%; heparin gtt D/C this AM due to concern for possible HIT; pending [facility] tomorrow AM; cardiology following -On emp IV Abx; no obvious source of infection; if Cx remain neg by tomorrow would D/C Abx and monitor -Cont steroids/nebs PO diet Hep gtt *held due to dropping PLT count* Guarded prognosis Mohsen Soares MD CCT: 50 min Entirety of encounter done via telemedicine Vitals, labs, diagnostics reviewed in EMR. This patients illness acutely impairs one or more vital organ systems such that there is a high probability of imminent or life threatening deterioration in the patient?s condition. I have used high-complexity decision making to assess, manipulate, & support vital systems to treat single or multiple vital organ system failure &/or prevent further life threatening deterioration of the patient?s condition. Time of note does not reflect time of service.
[2025-07-09] MEDS: Vancomycin HCl 750 MG in 0.9% Normal Saline (250mL Bag) 250 ML 250 MG IV (09:53)
[2025-07-09] MEDS: Vancomycin Trough/Random Due 1 LAB MC (21:40)
[2025-07-09 22:27] LABS: Vancomycin, Trough Level 9.4 ug/mL (5.0-15.0)
--- NOTE | 2025-07-09 22:37 | PCM.RX.CS ---
Consult Antibiotic Management Pharmacy has been consulted to manage selected antibiotic: Vancomycin Type of Intervention Type of Consult: Follow-up Labs Labs: Sodium 132 mmol/L (135-145) L 07/09/25 07:05 Potassium 4.8 mmol/L (3.5-5.1) 07/09/25 07:05 Chloride 101 mmol/L (96-106) 07/09/25 07:05 Carbon Dioxide 19.9 mmol/L (20.0-29.0) L 07/09/25 07:05 Anion Gap 11 (7-18) 07/09/25 07:05 BUN 17 mg/dL (4-19) 07/09/25 07:05 Creatinine 0.71 mg/dL (0.70-1.20) 07/09/25 07:05 Est GFR (MDRD) Non-Af 94 (>60) 07/09/25 07:05 BUN/Creatinine Ratio 23.6 RATIO (10-20) H 07/09/25 07:05 Glucose 157 mg/dL (70-99) H 07/09/25 07:05 Vancomycin Trough 9.4 ug/mL (5.0-15.0) 07/09/25 21:25 Microbiology Microbiology: Microbiology 07/08/25 09:30 Sputum, Expectorated/Coughed Gram Stain - Final 07/08/25 09:30 Sputum, Expectorated/Coughed Respiratory Culture - Preliminary Appears to be normal respiratory mirta. Further studies to follow. 07/08/25 11:15 Mucosa - Nasopharyngeal Coronavirus COVID-19 PCR - Final 07/08/25 11:15 Mucosa - Nasopharyngeal Respiratory Panel (PCR) - Final 07/08/25 11:30 Urine, Clean Catch Legionella Antigen - Final 07/08/25 11:30 Urine, Clean Catch Streptococcus pneumoniae Antigen (M - Final 07/08/25 04:00 Mucosa - Nose SARS-CoV-2, Influenza & RSV (PCR) - Final Goal Trough Goal Trough: 15-20 mcg/mL Pharmacy Plan for Drug Dosing Pharmacy Plan for Drug Dosing: Pharmacy Service will continue to monitor and adjust dosing as required. TROUGH 9.4 @ 11.5 HOURS. INCREASE TO 1GM Q12H AND DRAW TROUGH PRIOR TO 4TH DOSE Follow-Up Labs Follow-Up Labs: Trough: Vancomycin Date/Time Labs Ordered Labs to be done on [date and time ordered]: 07/11 @ 1000
[2025-07-09] MEDS: Vancomycin HCl 1,000 MG in 0.9% Normal Saline (250mL Bag) 250 ML 250 MG IV (22:51)
[2025-07-10] VITALS (24 sets, daily range): BP systolic 73–119; BP diastolic 52–89; PULSE 68–99; RESP 14–22; TEMP 36.1–36.6; O2SAT 89–99; BMI 23.5
[2025-07-10] MEDS: Cefepime HCl 2 GM in 0.9% Normal Saline (100mL MB+) 100 ML IV (05:14)
[2025-07-10 05:18] LABS: Hematocrit 32.1 % (37-47); Hemoglobin 11.4 g/dL (12.0-15.0); Immature Granulocytes Count 0.060 X10^3/uL (0.0-0.0); Mean Corp Hgb Conc 35.5 g/dL (32-36); Mean Corpuscular Volume 94.7 fL (81-99); Mean Platelet Vol. 13.4 fl (6.2-12.0); NRBC Flagged by Analyzer 0 % (0-5); POSITIVE COUNT YES; Platelet Count 94 K/mm3 (150-450); RBC Distribution Width CV 13.5 % (11.6-14.6); RBC Distribution Width SD 46.5 fl (35.1-43.9); Red Blood Count 3.39 M/mm3 (4.2-5.4); White Blood Count 9.8 K/mm3 (4.4-11.0)
[2025-07-10 05:21] LABS: Differential Indicated SCAN CRITERIA MET
[2025-07-10 05:37] LABS: Anion Gap 6 (7-18); BUN 23 mg/dL (4-19); BUN/Creat Ratio 32.2 RATIO (10-20); Calcium,Total 8.6 mg/dL (7.6-11.0); Carbon Dioxide 23.4 mmol/L (20.0-29.0); Chloride 105 mmol/L (96-106); Estimated Creatinine Clearance 81.90 ml/min (50-250); Glucose 132 mg/dL (70-99); Potassium 4.3 mmol/L (3.5-5.1)
--- NOTE | 2025-07-10 07:17 | PN.HOSP_ITS ---
Reason for Visit Chief Complaint: Shortness of breath Subjective Subjective No issues overnight. Breathing continues to improve and weaning oxygen. Patient has no complaints. Awaiting cardiac catheterization at the time of my evaluation Objective Data Objective Data Vital Signs: Vital Signs Temp Pulse Resp BP Pulse Ox O2 Del Method O2 Flow Rate 97.6 F L 68 19 H 94/71 97 Nasal Cannula 6 07/10/25 04:00 07/10/25 06:00 07/10/25 06:00 07/10/25 06:00 07/10/25 06:00 07/10/25 06:00 07/10/25 06:00 FiO2 45 07/09/25 10:00 Oxygen Flow Rate (L/min) 6 Oxygen Delivery Method Nasal Cannula Weight: 70.4 kg Body Mass Index (BMI) 23.5 Intake & Output: Intake and Output for Last 24 Hours 07/08/25 07/09/25 07/10/25 23:59 23:59 23:59 Intake Total 1276.08 / 1276.08 736.74 / 736.74 370 / 370 Output Total 800 / 800 5650 / 5650 Balance 476.08 / 476.08 -4913.26 / -4913.26 370 / 370 Lab / Micro Data 07/10/25 04:50 07/10/25 04:50 Labs: Laboratory Results - last 24 hr 07/08/25 07:05: Phosphorus 2.9 07/09/25 05:13: PT 14.5, INR 1.1 07/09/25 07:05: Sodium 132 L, Potassium 4.8, Chloride 101, Carbon Dioxide 19.9 L , Anion Gap 11, BUN 17, Creatinine 0.71, Estim Creat Clear Calc 80.75, Est GFR (MDRD) Non-Af 94, BUN/Creatinine Ratio 23.6 H, Glucose 157 H, Calcium 8.5, Magnesium 2.1, Total Bilirubin 0.65, AST 66 H, ALT 22, Alkaline Phosphatase 67, Total Protein 6.0, Albumin 3.8, Globulin 2.1 L, Albumin/Globulin Ratio 1.8 07/09/25 07:46: Plt Count 105 L 07/09/25 21:25: Vancomycin Trough 9.4 07/10/25 04:50: WBC 9.8, RBC 3.39 L, Hgb 11.4 L, Hct 32.1 L, MCV 94.7, MCH 33.6 H, MCHC 35.5, RDW Std Deviation 46.5 H, RDW Coeff of Tabitha 13.5, Plt Count 94 L, M PV 13.4 H, Immature Gran % (Auto) 0.600, Neut % (Auto) 85.1 H, Lymph % (Auto) 8.2 L, [place] % (Auto) 6.0, Eos % (Auto) 0.0, Baso % (Auto) 0.1, Absolute Neuts (auto) 8.4 H, Absolute Lymphs (auto) 0.81 L, Nucleated RBC % 0, Platelet Estimate SLT DEC, Sodium 135, Potassium 4.3, Chloride 105, Carbon Dioxide 23.4, Anion Gap 6 L, BUN 23 H, Creatinine 0.70, Estim Creat Clear Calc 81.90, Est GFR (MDRD) Non-Af 97, BUN/Creatinine Ratio 32.2 H, Glucose 132 H, Calcium 8.6, P hosphorus 2.3 L Micro: Microbiology 07/08/25 09:30 Sputum, Expectorated/Coughed Gram Stain - Final 07/08/25 09:30 Sputum, Expectorated/Coughed Respiratory Culture - Preliminary Appears to be normal respiratory mirta. Further studies to follow. 07/08/25 11:15 Mucosa - Nasopharyngeal Coronavirus COVID-19 PCR - Final 07/08/25 11:15 Mucosa - Nasopharyngeal Respiratory Panel (PCR) - Final 07/08/25 11:30 Urine, Clean Catch Legionella Antigen - Final 07/08/25 11:30 Urine, Clean Catch Streptococcus pneumoniae Antigen (M - Final 07/08/25 04:00 Mucosa - Nose SARS-CoV-2, Influenza & RSV (PCR) - Final Rhythm Strip Rhythm Strip: Sinus Rhythm (Sinus rhythm with occasional sinus tachycardia. No other significant arrhythmias appreciated) Physical Exam Const alert, oriented x3, no apparent distress, average body habitus and well nourished; Negative for healthy appearing Constitutional Narrative: Cooperative, upper middle-aged, white female, sleeping soundly in right side- lying at the time of my arrival but awakens, startled upon awakening, appears comfortable HEENT normocephalic, head/scalp atraumatic and moist oral mucous membranes Eyes Negative for no scleral icterus Resp normal respiratory effort, no retractions, no use of accessory muscles and clear to auscultation bilaterally Resp Narrative: No signs of respiratory distress at all today, lungs are diffusely diminished but clear, weaned to 5 L nasal cannula Auscultation: Negative for crackles, rhonchi or wheezes Cardio regular rate, regular rhythm, S1 normal heart sound, S2 normal heart sound, no murmurs, no rub, no gallops and no clicks GI normal to inspection, nondistended, normoactive bowel sounds, soft to palpation and non-tender Extremity no clubbing, cyanosis or edema Extremity Narrative: Decreased lean muscle mass, radial and pedal pulses are 2+ Neuro moves all extremities and no focal motor deficits Speech: speech normal Psych affect normal Psych Narrative: Very pleasant, eye contact good and patient interacts appropriately Assessment & Plan Assessment/Plan (1) Acute hypoxemic respiratory failure: (2) Non-ST elevated myocardial infarction (non-STEMI): (3) Acute HFrEF (heart failure with reduced ejection fraction): (4) Leukocytosis: (5) Thrombocytopenia: PLAN: Plan Acute hypoxic respiratory failure-suspect multifactorial - Patient with signs of acute decompensated heart failure on imaging however exam is not as consistent with this/emphysematous changes noted as well - Sputum culture shows only oral mirta - Lasix per cardiology - Patient was weaned from Airvo and now to 2 L nasal cannula - Continue to wean as able - Will need ambulatory pulse ox prior to discharge - Continue nebulizers - Continue steroids - Continue I-S and Acapella - Continue empiric antibiotics - Procalcitonin was 0.03 and I do anticipate we should be able to discontinue antibiotics soon - Would recommend outpatient cardiology and pulmonary medicine follow-up after discharge as I do suspect patient likely has COPD and will need PFTs and 6- minute walk NSTEMI - NSTEMI ruled out with clean coronaries and troponin elevation likely related to heart failure and respiratory distress -With clean cardiac catheterization will discontinue aspirin and atorvastatin -Cardiomyopathy deemed nonischemic and goal-directed therapy initiated - Echocardiogram shows reduced EF at 25 to 30% with global dysfunction Acute thrombocytopenia - Platelet count normal on arrival at 218,000 - Patient is now off heparin - Platelet count appears to be stabilizing with only slight drop overnight - Avoid heparin and low molecular weight heparin products - HIT antibody (PF4 heparin antibody) pending at this time -If positive patient will need heparin placed as drug allergy - SCDs initiated for DVT prophylaxis Acute HFrEF secondary to nonischemic cardiomyopathy - Newly identified reduced ejection fraction at 25 to 30% - Cardiac catheterization showed no significant coronary disease in all vessels - Cardiology has initiated low-dose beta-korey, low-dose ARB, and low-dose diuretic - Will discontinue aspirin and atorvastatin - Start Jardiance and will continue at discharge if able to obtain insurance coverage - Continue to monitor - Cardiology is following-->appreciate input Mild hypophosphatemia - P.o. Phos ordered - recheck in a.m. Leukocytosis -Resolved Hyponatremia -Resolved Hypothyroidism - Continue levothyroxine COPD - Suspect undiagnosed but patient has emphysematous changes on imaging - Once respiratory status stabilizes will need outpatient PFTs and 6-minute walk test - Continue treatment as noted above - May need chronic inhalers at the time of discharge - Encouraged ongoing tobacco cessation Substance abuse - Patient reported that she takes her sisters Valium on occasion - with respiratory status would avoid benzodiazepines and monitor for any signs of withdrawal - Also reported history of methamphetamine use Tobacco abuse - Recommend cessation DVT prophylaxis - Discontinue heparin drip due to significant drop in platelet counts - SCDs ordered CODE STATUS - Full code Charges/Coding Visit Charges Inpatient E&M: 36981 Subs Hosp L2
--- NOTE | 2025-07-10 09:06 | PCI.CARDCATH ---
PCI Cardiac Cath Report PCI Report: Date of procedure: 07/10/2025 Procedure: Left heart catheterization/coronary angiogram under moderate sedation Details: Patient was brought down to the [facility] and placed on the table and draped under sterile condition. After a timeout was completed patient provided sedation with 0.5 mg IV Versed and 25 mcg IV fentanyl. Sedation was supervised by me and monitored separately by a trained registered nurse. Using ultrasound guidance and a micropuncture needle technique the right common femoral artery was visualized followed by delivery of lidocaine followed by placement of a 6 [place] sheath. A 6 [place] JR4 diagnostic catheter along with a J-wire was advanced into the ventricle followed by removal of the wire and checking a LVEDP. Continue to evaluation and documentation of a pullback gradient was completed. No significant gradient appreciated. The JR4 catheter was left and placed and used to visualize the right coronary artery with multiple images completed. During imaging likely some spasm was noted with drop in pressure therefore the catheter was removed. A JL 4 diagnostic catheter was then inserted along with the J-wire and used to image the left coronary system. Multiple images were completed utilizing multiple angles to visualize the left coronary system. Finally this catheter was removed and completion of a common femoral artery angiogram was done noting good placement of the sheath. The access site was then closed utilizing a Perclose device with good hemostasis. 5 minutes of manual pressure also completed to help with hemostasis. Hemodynamics: LVEDP 15-20 mmHg LV: 95/2 AO: 96/56 Imaging: Left Main coronary artery: Moderate to large size vessel with no significant disease appreciated Left anterior descending artery: Medium sized vessel with no significant disease appreciated. D1 and D2 are small to medium sized with no significant disease appreciated Left circumflex: Moderate to large size vessel with no significant disease appreciated. OM1 and OM 2 are small to medium sized vessel with no significant disease Right coronary artery: Dominant vessel provides to right PDA and right PLV branches. No significant disease appreciated throughout the vessel. Complications: No complications appreciated Impression: Patient with likely nonischemic cardiomyopathy. No significant CAD appreciated. LVEDP within normal limits. No significant gradient appreciated on pullback. Recommendations: Continue admission and initiate patient on guideline directed medical therapy. If patient does well overnight likely will be okay for discharge from cardiology standpoint tomorrow. Sedation: 0.5 mg IV Versed and 25 mcg IV fentanyl; total sedation time of 25 minutes Estimated blood loss: Less than 20 cc Contrast: 50 cc Radiation: 2.9 minutes for total of 92 mGy Charges/Coding Procedures Add on/Second Study CF Procedures 9xxxx Addon/2nd Proc: 47795 L hrt artery/ventricle angio
--- NOTE | 2025-07-10 09:43 | PN.CC_ITS ---
Objective Data Objective Data Vital Signs: Vital Signs Last response 3 Temperature 36.4 C L 07/10/25 04:00 Temperature Source Temporal 07/10/25 04:00 Pulse Rate 68 07/10/25 09:21 Respiratory Rate 15 07/10/25 09:21 Respiratory Effort Normal, Non-Labored 07/10/25 04:00 Respiratory Depth Normal 07/10/25 04:00 Respiratory Pattern Tachypnea 07/10/25 04:00 Blood Pressure 99/78 07/10/25 09:21 Blood Pressure Mean 85 07/10/25 09:21 Blood Pressure Source Monitor 07/10/25 09:21 Blood Pressure Position Supine 07/10/25 09:21 Blood Pressure Location Left Arm 07/10/25 09:21 Pulse Ox 96 07/10/25 09:21 Oxygen Delivery Method Room Air 07/10/25 09:21 Oxygen Flow Rate (L/min) 4 07/10/25 08:16 Fraction of Inspired Oxygen (FIO2) 45 07/09/25 10:00 EtCo2 - Document during CPR and with ROSC 50 07/09/25 04:00 I&O: I&O Last 24 Hours 3 07/09/25 07/09/25 07/10/25 11:59 23:59 11:59 Intake Total 536.74 / 736.74 200 / 736.74 370 / 370 Output Total 3650 / 5650 2000 / 5650 Balance -3113.26 / -4913.26 -1800 / -4913.26 370 / 370 I&O: Total Stay 3 07/08/25 03:16 thru 07/10/25 09:35 Intake Total 2382.82 Output Total 6450 Balance -4067.18 Current Meds Ordered / Administered: Current meds ordered / Administered 3 Generic Name Dose Route Start Last Admin Trade Name Freq PRN Reason Stop Dose Admin Albuterol Sulfate 2.5 mg 07/08/25 08:00 07/08/25 08:44 Albuterol 2.5 Mg/3 Ml Vial.Neb. INHALATION 2.5 mg Q2H PRN Administration SOB &/OR WHEEZING Albuterol/Ipratropium 3 ml 07/08/25 09:30 07/09/25 19:21 Ipratropium/Albuterol Sulfate 3 Ml Ampul.Neb INHALATION 3 ml Q6HWA.RT JANES Administration Aspirin 81 mg 07/09/25 08:00 07/10/25 07:47 Aspirin 81 Mg Tab.Chew PO 81 mg BREAKFAST JANES Administration Atorvastatin Calcium 40 mg 07/08/25 22:00 07/09/25 21:21 Atorvastatin Calcium 40 Mg Tablet PO 40 mg QHS JANES Administration Hydroxyzine Pamoate 50 mg 07/09/25 00:25 07/09/25 00:33 Hydroxyzine Aleyda 25 Mg Capsule PO 50 mg QHS PRN PRN Administration ANXIETY/RESTLESSNESS/SLEEP Cefepime HCl 2 gm/ Sodium 100 mls @ 200 mls/hr 07/08/25 08:00 07/10/25 06:27 Chloride IV Infused Q8 AJNES Infusion Vancomycin IV-PHARMACY TO DOSE 500 mls @ 250 mls/hr 07/08/25 08:30 1 each/ Sodium Chloride IV PRN PRN Rx to Dose Protocol Pantoprazole Sodium 40 mg/ 100 mls @ 300 mls/hr 07/08/25 10:00 07/09/25 08:30 Sodium Chloride IV Infused Q24 JANES Infusion Sodium Chloride 250 mls @ 15 mls/hr 07/08/25 08:26 IV .[id number] PRN Saline Flush Sodium Chloride 250 mls @ 15 mls/hr 07/08/25 08:26 IV .[id number] PRN Additional IVPB Infusion Vancomycin HCl 1,000 mg/ 270 mls @ 250 mls/hr 07/09/25 22:30 07/10/25 00:16 Sodium Chloride IV Infused Q12H JANES Infusion Levothyroxine Sodium 88 mcg 07/10/25 06:00 07/10/25 05:12 Levothyroxine 88 Mcg Tablet PO 88 mcg DAILY@0600 JANES Administration Methylprednisolone Sodium Succinate 40 mg 07/08/25 18:00 07/10/25 05:17 Methylprednisolone Sod Succ 40 Mg/Ml Vial IV 40 mg Q12H JANES Administration Potassium Phos/Sodium Phos 1 packet 07/10/25 10:00 Na Biphos/Potassium Phosphate Packet PO 07/12/25 10:01 BID JANES Sodium Chloride 10 - 40 ml 07/08/25 08:26 07/09/25 05:18 0.9% Saline Lock 10 Ml Syringe IV 10 ml UD PRN Administration SALINE FLUSH Vancomycin Protocol 1 lab 07/11/25 09:00 Vancomycin Trough/Random Due MC 07/11/25 11:00 DAILY [facility] Lab / Micro Data 07/10/25 04:50 07/10/25 04:50 Labs: Laboratory Results - last 24 hr 07/09/25 21:25: Vancomycin Trough 9.4 07/10/25 04:50: WBC 9.8, RBC 3.39 L, Hgb 11.4 L, Hct 32.1 L, MCV 94.7, MCH 33.6 H, MCHC 35.5, RDW Std Deviation 46.5 H, RDW Coeff of Tabitha 13.5, Plt Count 94 L, M PV 13.4 H, Immature Gran % (Auto) 0.600, Neut % (Auto) 85.1 H, Lymph % (Auto) 8.2 L, [place] % (Auto) 6.0, Eos % (Auto) 0.0, Baso % (Auto) 0.1, Absolute Neuts (auto) 8.4 H, Absolute Lymphs (auto) 0.81 L, Nucleated RBC % 0, Platelet Estimate SLT DEC, Sodium 135, Potassium 4.3, Chloride 105, Carbon Dioxide 23.4, Anion Gap 6 L, BUN 23 H, Creatinine 0.70, Estim Creat Clear Calc 81.90, Est GFR (MDRD) Non-Af 97, BUN/Creatinine Ratio 32.2 H, Glucose 132 H, Calcium 8.6, P hosphorus 2.3 L Micro: Microbiology 07/08/25 09:30 Sputum, Expectorated/Coughed Gram Stain - Final 07/08/25 09:30 Sputum, Expectorated/Coughed Respiratory Culture - Preliminary Appears to be normal respiratory mirta. Further studies to follow. Rhythm Strip Rhythm Strip: Sinus Rhythm (Sinus rhythm with occasional sinus tachycardia. No other significant arrhythmias appreciated) Imaging Radiology Impression Echocardiogram 07/08/25 08:30 Interpretation Summary The estimated ejection fraction is 25???30 %. Mild (1+) mitral valve insufficiency. Mild (1+) tricuspid valve insufficiency. Normal sized IVC that collapses with respiration/sniff. Ordering Physician: Omar Casanova Performed By: Tammy Tamez RDCS Assessment and Plan . Assessment and plan: Critical Care Time: The entirety of this encounter was done via Telemedicine Subjective Subjective S: Pt seen and examined. No acute events. SP LHC which was reportedly clean. On 2L NC. No complaints. PE: General: Well developed, acute/chronically ill female; in no distress; +NC HEENT: anicteric Sclera, nl nose; supple neck, no masses Cardiovascular: +S1/S2; No rubs, gallops; no displaced PM Respiratory: diminished; no crackles, wheezes, or rhonchi Abdominal: Non-tender; Non distended; hypoBS x 4; No Hepatosplenomegaly Extremities: Warm, well perfused; No clubbing, cyanosis; capillary refill < 2 sec Skin: intact, no rashes Neurological: A&Ox3; no gross deficits appreciated A/P: #Acute hypoxemic respiratory failure #AECOPD #NSTEMI #Thrombocytopenia #Hx methamphetamine abuse (last reported use 1 year ago) #Tobacco abuse (reports quiting aside from smoking ~20 cig this year) #Anxiety/panic attacks -Cont HHFNC; titrate to keep sats ~90-92% --> weaned to 2L NC; encourage mobilization/IS use -TTE with reduced EF 25-30%; heparin gtt D/C this AM due to concern for possible HIT --> sp LHC with sig disease noted per report; cardiology following -On emp IV Abx; no obvious source of infection; if Cx remain neg by tomorrow would D/C Abx and monitor --> can D/C -Cont steroids/nebs --> can de-esc to PO pred and finish 3-5 additional days PO diet Hep gtt *held due to dropping PLT count* Guarded prognosis Can downgrade from my standpoint. Will sign off but available as needed. Mohsen Soares MD Entirety of encounter done via telemedicine Vitals, labs, diagnostics reviewed in EMR. This patients illness acutely impairs one or more vital organ systems such that there is a high probability of imminent or life threatening deterioration in the patient?s condition. I have used high-complexity decision making to assess, manipulate, & support vital systems to treat single or multiple vital organ system failure &/or prevent further life threatening deterioration of the patient?s condition. Time of note does not reflect time of service.
[2025-07-10] MEDS: Metoprolol(XL)Succ 25 MG Tablet PO (11:19)
[2025-07-10] MEDS: Pantoprazole Sodium 40 MG in 0.9% Normal Saline (100mL MB+) 100 ML 330 MG IV (11:19)
[2025-07-10] MEDS: Na Biphos/Potassium Phosphate PACKET 1 PACKET PO ×2 (11:31→20:10)
--- NOTE | 2025-07-10 15:36 | CASEMGMT ---
Addendum entered by Alida Arango 07/10/25 16:03: SW did not ask about drug use due to the SO being in the room. Original Note: Social Work SW spoke with the patient and her SO. SW asked the patient if she needed any information on resources in the area such as food, housing or counseling and the patient stated no. Phoebe. STEPHANIE Arango
[2025-07-10] MEDS: hydrOXYzine PAM 25 MG Capsule 50 MG PO (20:14)
--- NOTE | 2025-07-10 22:45 | PN.HOSP_ITS ---
Hospitalist Note Pt c/o pain at cath site when she touches it, no palpable hematoma, no bleeding/oozing at site, no audible bruit, distal pulses palpable +2. Con sidering her h/o illicit drug use, I ordered acetaminophen 1gm PO q8h prn and tramadol 50mg PO TID prn. She denies having known allergies to medications. I informed her of orders.
[2025-07-11] VITALS (11 sets, daily range): BP systolic 90–105; BP diastolic 63–78; PULSE 70–92; RESP 15–18; TEMP 36.1–36.4; O2SAT 90–96; BMI 22.8
[2025-07-11] MEDS: 0.9% Saline Lock 10 ML Syringe IV ×2 (04:28→21:41)
[2025-07-11 05:34] LABS: AST(SGOT) 43 U/L (<=31); Alanine Aminotransfer ALT/SGPT 35 U/L (<=34); Albumin, Serum 3.9 g/dL (3.4-4.8); Alkaline Phosphatase 62 U/L (35-104); Anion Gap 11 (7-18); BUN 24 mg/dL (4-19); BUN/Creat Ratio 26.3 RATIO (10-20); Calcium,Total 8.5 mg/dL (7.6-11.0); Carbon Dioxide 22.5 mmol/L (20.0-29.0); Chloride 103 mmol/L (96-106); Estimated Creatinine Clearance 63.70 ml/min (50-250); Globulin 2.3 g/dL (2.2-4.2); Glucose 155 mg/dL (70-99); Magnesium 2.1 mg/dL (1.5-2.2); Potassium 4.3 mmol/L (3.5-5.1)
--- NOTE | 2025-07-11 07:05 | DS.PCM_ITS ---
Providers Date of Admission: 07/08/25 Primary Care Physician: Dr. Swati Ackerman, DO Consultations 07/08/25 07:49 Consult: Cardiology Routine Consulting Provider: Shayna Muñoz Reason for Consult: Non-STEMI EMERGENT Consult: Yes MD Notified: Yes Date Notified: 07/08/25 Time Notified: 07:49 Method of Notification: ED Physician Initiated 07/08/25 09:36 Consult: Service Or Work Dispatcher Chief / Pulmonary Medicine Routine Consulting Provider: Intensivists/Pulmonary Med Reason for Consult: Respiratory failure, chronic obstructive pulmonary disease EMERGENT Consult: No MD Notified: Yes Date Notified: 07/08/25 Time Notified: 09:36 Method of Notification: Verbal Reason For Visit: ACUTE HYPOXIC RESPIRATORY FAILURE Diagnosis Discharge Diagnosis (1) Acute hypoxemic respiratory failure: Status: Acute Code(s): J96.01 - Acute respiratory failure with hypoxia (2) Non-ST elevated myocardial infarction (non-STEMI): Status: Acute Code(s): I21.4 - Non-ST elevation (NSTEMI) myocardial infarction (3) Acute HFrEF (heart failure with reduced ejection fraction): Status: Acute Code(s): I50.21 - Acute systolic (congestive) heart failure (4) Leukocytosis: Status: Acute Code(s): D72.829 - Elevated white blood cell count, unspecified (5) Thrombocytopenia: Status: Acute Code(s): D69.6 - Thrombocytopenia, unspecified Plan Acute hypoxic respiratory failure-suspect multifactorial - Patient with signs of acute decompensated heart failure on imaging however exam is not as consistent with this/emphysematous changes noted as well - Sputum culture shows only oral mirta - Lasix per cardiology - Patient was weaned from Airvo and now to 2 L nasal cannula - Continue to wean as able - Will need ambulatory pulse ox prior to discharge - Continue nebulizers - Continue steroids - Continue I-S and Acapella - Continue empiric antibiotics - Procalcitonin was 0.03 and I do anticipate we should be able to discontinue antibiotics soon - Would recommend outpatient cardiology and pulmonary medicine follow-up after discharge as I do suspect patient likely has COPD and will need PFTs and 6- minute walk NSTEMI - NSTEMI ruled out with clean coronaries and troponin elevation likely related to heart failure and respiratory distress -With clean cardiac catheterization will discontinue aspirin and atorvastatin -Cardiomyopathy deemed nonischemic and goal-directed therapy initiated - Echocardiogram shows reduced EF at 25 to 30% with global dysfunction Acute thrombocytopenia - Platelet count normal on arrival at 218,000 - Patient is now off heparin - Platelet count appears to be stabilizing with only slight drop overnight - Avoid heparin and low molecular weight heparin products - HIT antibody (PF4 heparin antibody) pending at this time -If positive patient will need heparin placed as drug allergy - SCDs initiated for DVT prophylaxis Acute HFrEF secondary to nonischemic cardiomyopathy - Newly identified reduced ejection fraction at 25 to 30% - Cardiac catheterization showed no significant coronary disease in all vessels - Cardiology has initiated low-dose beta-korey, low-dose ARB, and low-dose diuretic - Will discontinue aspirin and atorvastatin - Start Jardiance and will continue at discharge if able to obtain insurance coverage - Continue to monitor - Cardiology is following-->appreciate input Mild hypophosphatemia - P.o. Phos ordered - recheck in a.m. Leukocytosis -Resolved Hyponatremia -Resolved Hypothyroidism - Continue levothyroxine COPD - Suspect undiagnosed but patient has emphysematous changes on imaging - Once respiratory status stabilizes will need outpatient PFTs and 6-minute walk test - Continue treatment as noted above - May need chronic inhalers at the time of discharge - Encouraged ongoing tobacco cessation Substance abuse - Patient reported that she takes her sisters Valium on occasion - with respiratory status would avoid benzodiazepines and monitor for any signs of withdrawal - Also reported history of methamphetamine use Tobacco abuse - Recommend cessation DVT prophylaxis - Discontinue heparin drip due to significant drop in platelet counts - SCDs ordered CODE STATUS - Full code Medications at Discharge Home Medications levothyroxine 88 mcg tablet 88 mcg PO DAILY Hypothroidsm 07/08/25 Weight / BMI Weight Weight: 68.2 kg Body Mass Index (BMI) 22.8 ABG / Lab / Microbiology Data 07/10/25 04:50 07/11/25 04:45 Laboratory: Laboratory Results - last 24 hr 07/11/25 04:45: Sodium 137, Potassium 4.3, Chloride 103, Carbon Dioxide 22.5, Anion Gap 11, BUN 24 H, Creatinine 0.90, Estim Creat Clear Calc 63.70, Est GFR (MDRD) Non-Af 71, BUN/Creatinine Ratio 26.3 H, Glucose 155 H, Calcium 8.5, Magnesium 2.1, Total Bilirubin 0.32, AST 43 H, ALT 35, Alkaline Phosphatase 62, Total Protein 6.2, Albumin 3.9, Globulin 2.3, Albumin/Globulin Ratio 1.7 Microbiology: Microbiology 07/08/25 09:30 Sputum, Expectorated/Coughed Gram Stain - Final 07/08/25 09:30 Sputum, Expectorated/Coughed Respiratory Culture - Preliminary Appears to be normal respiratory mirta. Further studies to follow. 07/08/25 11:15 Mucosa - Nasopharyngeal Coronavirus COVID-19 PCR - Final 07/08/25 11:15 Mucosa - Nasopharyngeal Respiratory Panel (PCR) - Final 07/08/25 11:30 Urine, Clean Catch Legionella Antigen - Final 07/08/25 11:30 Urine, Clean Catch Streptococcus pneumoniae Antigen (M - Final 07/08/25 04:00 Mucosa - Nose SARS-CoV-2, Influenza & RSV (PCR) - Final Discharge Plan Admission Admit Date/Time: 07/08/25 07:06 Attending Provider: Opal Nina Primary Care Provider: Swati Ackerman Consulting Providers: Lizeth Pichardo; Dallin Sellers; Alex Knox; Mehrdad Morelos; Lg Espinosa; Tono Escalante; Yaron Holder; Abdulaziz Steve; Gerald Black; Tc Lacey; Pete Bragg; Dallin Russell; Romario Nuñez; Omar Casanova; Gregory Malik; JassonjoMatt moura; Lora Roberts; Jose Lees; Fei Oconnor; Reji Phillips NP; Marlee Huddleston PA; Panfilo Aburto Discharge Orders/Prescriptions Prescriptions: No Action levothyroxine 88 mcg tablet 88 mcg PO DAILY Referrals / Follow Up: Swati Ackerman, DO [Primary Care Provider, Family Practice] Care Physician,No Primary [Non-Staff, Medical]
--- NOTE | 2025-07-11 09:18 | PN.CARD_ITS ---
Subjective Subjective Patient seen and examined overall doing well. Has been transitioned to nasal cannula and maintaining good O2 saturation. Overall hemodynamically stable with borderline low blood pressures. Denies any concerning cardiovascular complaints or issues. Objective Data Vital Signs: Vital Signs Temp Pulse Resp BP Pulse Ox O2 Del Method O2 Flow Rate 97.5 F L 75 15 103/78 93 Room Air 2 07/11/25 04:00 07/11/25 06:43 07/11/25 06:43 07/11/25 04:00 07/11/25 06:43 07/11/25 06:43 07/10/25 13:00 FiO2 45 07/09/25 10:00 Oxygen Flow Rate (L/min) 2 Oxygen Delivery Method Room Air Weight: 150 lb 5.684 oz Body Mass Index (BMI) 22.8 Intake & Output: Intake and Output for Last 24 Hours 07/09/25 07/10/25 07/11/25 23:59 23:59 23:59 Intake Total 736.74 / 736.74 710 / 710 120 / 120 Output Total 5650 / 5650 Balance -4913.26 / -4913.26 710 / 710 120 / 120 Lab / Micro Data Attestation: I reviewed the patient's lab results. 07/10/25 04:50 07/11/25 04:45 Labs: Laboratory Results - last 24 hr 07/11/25 04:45: Sodium 137, Potassium 4.3, Chloride 103, Carbon Dioxide 22.5, Anion Gap 11, BUN 24 H, Creatinine 0.90, Estim Creat Clear Calc 63.70, Est GFR (MDRD) Non-Af 71, BUN/Creatinine Ratio 26.3 H, Glucose 155 H, Calcium 8.5, Magnesium 2.1, Total Bilirubin 0.32, AST 43 H, ALT 35, Alkaline Phosphatase 62, Total Protein 6.2, Albumin 3.9, Globulin 2.3, Albumin/Globulin Ratio 1.7 Micro: Microbiology 07/08/25 09:30 Sputum, Expectorated/Coughed Gram Stain - Final 07/08/25 09:30 Sputum, Expectorated/Coughed Respiratory Culture - Preliminary Appears to be normal respiratory mirta. Further studies to follow. Rhythm Strip Rhythm Strip: Sinus Rhythm (Sinus rhythm with occasional sinus tachycardia. No other significant arrhythmias appreciated) Cardiology Labs/Tests 07/11/25 04:45: Sodium 137, Potassium 4.3, Chloride 103, Carbon Dioxide 22.5, Anion Gap 11, BUN 24 H, Creatinine 0.90, Est GFR (MDRD) Non-Af 71, B UN/Creatinine Ratio 26.3 H, Glucose 155 H, Calcium 8.5, Magnesium 2.1, Total Bilirubin 0.32 Rhythm: EKG: ECHO: Stress Test: Cardiac Cath: 07/10/2025 right dominant coronary system with no significant CAD appreciated. LVEDP mildly elevated at 15-20 mmHg. PCI: CT Surgery: Holter monitor: EPS: PPM: CXR: Chest CT Scan: Physical Exam Const alert Orientation / Consciousness: awake Resp normal respiratory effort Resp Narrative: Decreased breath sounds with no wheezes, rales, or rhonchi Cardio regular rate, regular rhythm, no murmurs, no rub and no gallops GI normal to inspection, nondistended, normoactive bowel sounds and soft to palpation Extremity no clubbing, cyanosis or edema Extremity Narrative: Right groin access site soft, nontender, no hematoma or sign of infection Skin no rashes or lesions noted Neuro Neuro Narrative: Moves all extremities Psych Psych Narrative: Normal mood and affect Assessment & Plan Assessment/Plan (1) Non-ST elevated myocardial infarction (non-STEMI): PLAN: ? Type II NSTEMI related to CHF exacerbation. Left heart catheterization with normal coronaries. Nonischemic cardiomyopathy likely related to drug abuse history ? Patient overall okay for discharge from cardiology standpoint. She should follow-up in office with the cardiology team as soon as possible after discharge for monitoring ? Cardiology will drop to standby. Please call with questions. (2) Acute on chronic systolic and diastolic heart failure, NYHA class 3: PLAN: ? As noted above echocardiogram notes severely reduced ejection fraction of 25-30%. Suspect this to be possibly related to drug abuse history ? As noted above left heart catheterization with normal coronaries. ? Okay for discharge home with Toprol 25 mg daily, losartan 25 mg daily, and as needed Lasix. Hospitalist team has also started on Jardiance. Agreeable from cardiology standpoint if patient can afford it. Also would recommend consideration for spironolactone 25 mg daily however blood pressure borderline low therefore patient may not be able to tolerate. Can be started as outpatient. ? Patient needs quick follow-up in office with cardiology for close monitoring. Discussion surrounding AICD placement should also be considered if patient maintains abstinence from drug abuse. (3) Acute respiratory failure with hypoxia: PLAN: ? Likely related to COPD exacerbation as well as exacerbation of heart failure ? Patient overall doing well on nasal cannula. Further management and evaluation per hospitalist team. (4) Thrombocytopenia: PLAN: ? Platelets remained overall stable yesterday. Unsure if they were reevaluated today no labs appreciated. ? Further management and evaluation per hospitalist team PLAN: Plan ? As noted above overall okay for discharge from cardiology standpoint on medications as mentioned. ? Quick follow-up in office with cardiology recommended. ? Continue to encourage cessation of drug abuse
[2025-07-11] MEDS: Na Biphos/Potassium Phosphate PACKET 1 PACKET PO ×2 (09:22→21:41)
--- NOTE | 2025-07-11 13:54 | CASEMGMT ---
Social Work It is documented pt has been taking her sister's valium for anxiety. SW spoke w/pt in regard to this. Pt confirms she has been doing this. Pt does acknowledge that she struggles w/anxiety, and the valium helps. SW spoke w/pt about getting in to see a psychiatrist and starting counseling, pt is open to this. A resource list of counseling agencies were given to pt, SW did suggest pt follow up w/[facility] as they have both therapy and psychiatry. SW also reminded pt she can speak to her PCP about this. Pt states understanding, may follow up. SW spoke w/pt also about substance abuse, pt declined needing resources at this time. DANIELLA Wynne
--- NOTE | 2025-07-11 15:06 | PN.HOSP_ITS ---
Reason for Visit Chief Complaint: Shortness of breath Subjective Subjective Patient complained of lightheadedness with movement today. Persisted throughout the afternoon. Will check orthostatic vitals as cardiology did starts goal- directed therapy for her heart failure. May need down titrate or stop some medications depending on tolerance. No other complaints. Patient remains on room air. Objective Data Objective Data Vital Signs: Vital Signs Temp Pulse Resp BP Pulse Ox O2 Del Method O2 Flow Rate 97.2 F L 70 18 91/63 92 Room Air 2 07/11/25 14:06 07/11/25 14:06 07/11/25 14:06 07/11/25 14:06 07/11/25 14:06 07/11/25 14:06 07/10/25 13:00 FiO2 45 07/09/25 10:00 Oxygen Flow Rate (L/min) 2 Oxygen Delivery Method Room Air Weight: 68.2 kg Body Mass Index (BMI) 22.8 Intake & Output: Intake and Output for Last 24 Hours 07/09/25 07/10/25 07/11/25 23:59 23:59 23:59 Intake Total 736.74 / 736.74 710 / 710 120 / 120 Output Total 5650 / 5650 Balance -4913.26 / -4913.26 710 / 710 120 / 120 Lab / Micro Data 07/10/25 04:50 07/11/25 04:45 Labs: Laboratory Results - last 24 hr 07/11/25 04:45: Sodium 137, Potassium 4.3, Chloride 103, Carbon Dioxide 22.5, Anion Gap 11, BUN 24 H, Creatinine 0.90, Estim Creat Clear Calc 63.70, Est GFR (MDRD) Non-Af 71, BUN/Creatinine Ratio 26.3 H, Glucose 155 H, Calcium 8.5, Magnesium 2.1, Total Bilirubin 0.32, AST 43 H, ALT 35, Alkaline Phosphatase 62, Total Protein 6.2, Albumin 3.9, Globulin 2.3, Albumin/Globulin Ratio 1.7 07/11/25 11:40: Hemoglobin A1c 5.6 Micro: Microbiology 07/08/25 09:30 Sputum, Expectorated/Coughed Gram Stain - Final 07/08/25 09:30 Sputum, Expectorated/Coughed Respiratory Culture - Final Mixed normal respiratory mirta. No Streptococcus pneumoniae, beta-hemolytic Streptococcus or Staphylococcus aureus isolated. 07/08/25 11:15 Mucosa - Nasopharyngeal Coronavirus COVID-19 PCR - Final 07/08/25 11:15 Mucosa - Nasopharyngeal Respiratory Panel (PCR) - Final 07/08/25 11:30 Urine, Clean Catch Legionella Antigen - Final 07/08/25 11:30 Urine, Clean Catch Streptococcus pneumoniae Antigen (M - Final 07/08/25 04:00 Mucosa - Nose SARS-CoV-2, Influenza & RSV (PCR) - Final Rhythm Strip Rhythm Strip: Sinus Rhythm (Sinus rhythm with occasional sinus tachycardia. No other significant arrhythmias appreciated) Physical Exam Const alert, oriented x3, no apparent distress, average body habitus and well nourished; Negative for healthy appearing Constitutional Narrative: Cooperative, upper middle-aged, white female, sitting up in wheelchair getting ready to be transferred out of the ICU to telemetry, appears comfortable, nontoxic HEENT normocephalic, head/scalp atraumatic and moist oral mucous membranes HEENT Narrative: Dentures in place, Mallampati 1-2, no thrush Resp normal respiratory effort, no retractions, no use of accessory muscles and clear to auscultation bilaterally Resp Narrative: No signs of respiratory distress at all today, lungs are diffusely diminished but clear, weaned to 5 L nasal cannula Auscultation: Negative for crackles, rhonchi or wheezes Cardio regular rate, regular rhythm, S1 normal heart sound, S2 normal heart sound, no murmurs, no rub, no gallops and no clicks GI normal to inspection, nondistended, normoactive bowel sounds, soft to palpation and non-tender Extremity no joint enlargement, no clubbing, cyanosis or edema and no pedal edema Extremity Narrative: Decreased lean muscle mass, radial and pedal pulses are 2+ Neuro moves all extremities and no focal motor deficits Speech: speech normal Psych affect normal Psych Narrative: Very pleasant, eye contact good and patient interacts appropriately Assessment & Plan Assessment/Plan (1) Acute hypoxemic respiratory failure: (2) Non-ST elevated myocardial infarction (non-STEMI): (3) Acute HFrEF (heart failure with reduced ejection fraction): (4) Leukocytosis: (5) Thrombocytopenia: (6) Gait instability: (7) Lightheadedness: PLAN: Plan Acute hypoxic respiratory failure-suspect multifactorial - Patient with signs of acute decompensated heart failure on imaging however exam is not as consistent with this/emphysematous changes noted as well -Resolved and patient is now on room air - Ambulatory pulse ox done on Sun and patient did not require oxygen - Continue nebulizers - Continue steroids - Continue I-S and Acapella -Stop antibiotics - Outpatient follow-up with pulmonary medicine and cardiology Troponin elevation - secondary to demand ischemia related to respiratory distress and heart failure Acute thrombocytopenia - Platelet count normal on arrival at 218,000 -Repeat CBC in a.m. - Avoid heparin and low molecular weight heparin products - HIT antibody (PF4 heparin antibody) remains pending at this time -If positive patient will need heparin placed as drug allergy - SCDs initiated for DVT prophylaxis Acute HFrEF secondary to nonischemic cardiomyopathy - Newly identified reduced ejection fraction at 25 to 30% - Cardiac catheterization showed no significant coronary disease in all vessels - Cardiology has initiated low-dose beta-korey, low-dose ARB, and low-dose diuretic -Patient does appear to have some orthostatic hypotension evaluation in progress -Will discontinue losartan and placed on lisinopril 2.5 mg daily continue other medications with hold parameters -Continue Jardiance and will continue at discharge if able to obtain insurance coverage - Continue to monitor - Cardiology is following-->appreciate input Lightheadedness - Suspect orthostatic hypotension related to goal-directed therapy for heart failure - Check orthostatic vitals - Discontinue losartan transition to lisinopril 2.5 mg daily - Continue beta-kroey and Lasix with hold parameters Gait instability - Continue PT/OT--> may need placement but will reassess tomorrow Mild hypophosphatemia -Resolved COPD - Suspect undiagnosed but patient has emphysematous changes on imaging - Once respiratory status stabilizes will need outpatient PFTs and 6-minute walk test - Continue treatment as noted above - May need chronic inhalers at the time of discharge - Encouraged ongoing tobacco cessation Substance abuse - Patient reported that she takes her sisters Valium on occasion - with respiratory status would avoid benzodiazepines and monitor for any signs of withdrawal - Also reported history of methamphetamine use Tobacco abuse - Recommend cessation DVT prophylaxis - Discontinue heparin drip due to significant drop in platelet counts - SCDs ordered CODE STATUS - Full code Charges/Coding Visit Charges Inpatient E&M: 78198 Subs Hosp L2
[2025-07-11] MEDS: hydrOXYzine PAM 25 MG Capsule 50 MG PO (21:43)
[2025-07-12] VITALS (9 sets, daily range): BP systolic 79–129; BP diastolic 53–89; PULSE 71–88; RESP 16–23; TEMP 36.4–36.8; O2SAT 94–97; BMI 23.1
[2025-07-12 05:42] LABS: Hematocrit 36.5 % (37-47); Hemoglobin 12.4 g/dL (12.0-15.0); Mean Corp Hgb Conc 34.0 g/dL (32-36); Mean Corpuscular Volume 96.1 fL (81-99); Mean Platelet Vol. 12.8 fl (6.2-12.0); Platelet Count 101 K/mm3 (150-450); RBC Distribution Width CV 13.7 % (11.6-14.6); RBC Distribution Width SD 48.6 fl (35.1-43.9); Red Blood Count 3.80 M/mm3 (4.2-5.4); White Blood Count 9.1 K/mm3 (4.4-11.0)
[2025-07-12 06:50] LABS: Anion Gap 10 (7-18); BUN 19 mg/dL (4-19); BUN/Creat Ratio 28.2 RATIO (10-20); Calcium,Total 8.6 mg/dL (7.6-11.0); Carbon Dioxide 25.7 mmol/L (20.0-29.0); Chloride 103 mmol/L (96-106); Estimated Creatinine Clearance 84.31 ml/min (50-250); Glucose 94 mg/dL (70-99); Potassium 4.1 mmol/L (3.5-5.1)
[2025-07-12] MEDS: Na Biphos/Potassium Phosphate PACKET 1 PACKET PO (08:47)
[2025-07-12] MEDS: Metoprolol(XL)Succ 25 MG Tablet PO (08:48)
--- NOTE | 2025-07-12 13:45 | PCM.PN.HOSP ---
Reason for Visit Chief Complaint: Shortness of breath Subjective Subjective No issues overnight. Panic attack this am. No SOB and has been stable on RA. Objective Data Objective Data Vital Signs: Vital Signs Temp Pulse Resp BP Pulse Ox O2 Del Method O2 Flow Rate 98.3 F 71 16 95/67 97 Room Air 2 07/12/25 12:07/12/25 12:07/12/25 12:07/12/25 12:07/12/25 12:07/12/25 12:07/10/25 13:00 FiO2 45 07/09/25 10:00 Oxygen Flow Rate (L/min) 2 Oxygen Delivery Method Room Air Weight: 69.3 kg Body Mass Index (BMI) 23.1 Intake & Output: Intake and Output for Last 24 Hours 07/10/25 07/11/25 07/12/25 23:59 23:59 23:59 Intake Total 710 / 710 720 / 720 620 / 620 Balance 710 / 710 720 / 720 620 / 620 Lab / Micro Data 07/12/25 05:18 07/12/25 05:18 Labs: Laboratory Results - last 24 hr 07/12/25 05:18: WBC 9.1, RBC 3.80 L, Hgb 12.4, Hct 36.5 L, MCV 96.1, MCH 32.6 H, MCHC 34.0, RDW Std Deviation 48.6 H, RDW Coeff of Tabitha 13.7, Plt Count 101 L, MPV 12.8 H, Sodium 139, Potassium 4.1, Chloride 103, Carbon Dioxide 25.7, Anion Gap 10, BUN 19, Creatinine 0.68 L, Estim Creat Clear Calc 84.31, Est GFR (MDRD) Non-Af 97, BUN/Creatinine Ratio 28.2 H, Glucose 94, Calcium 8.6 Micro: Microbiology 07/08/25 09:30 Sputum, Expectorated/Coughed Gram Stain - Final 07/08/25 09:30 Sputum, Expectorated/Coughed Respiratory Culture - Final Mixed normal respiratory mirta. No Streptococcus pneumoniae, beta-hemolytic Streptococcus or Staphylococcus aureus isolated. 07/08/25 11:15 Mucosa - Nasopharyngeal Coronavirus COVID-19 PCR - Final 07/08/25 11:15 Mucosa - Nasopharyngeal Respiratory Panel (PCR) - Final 07/08/25 11:30 Urine, Clean Catch Legionella Antigen - Final 07/08/25 11:30 Urine, Clean Catch Streptococcus pneumoniae Antigen (M - Final 07/08/25 04:00 Mucosa - Nose SARS-CoV-2, Influenza & RSV (PCR) - Final Rhythm Strip Rhythm Strip: Sinus Rhythm (Sinus rhythm with occasional sinus tachycardia. No other significant arrhythmias appreciated) Physical Exam Const alert, oriented x3, no apparent distress, average body habitus and well nourished; Negative for healthy appearing Constitutional Narrative: Cooperative, upper middle-aged, white female, lying in bed R sidelying and seems anxious but no s/o physiological distress HEENT normocephalic, head/scalp atraumatic and moist oral mucous membranes HEENT Narrative: Dentures in place, Mallampati 1, no thrush Resp normal respiratory effort, no retractions, no use of accessory muscles and clear to auscultation bilaterally Resp Narrative: lungs are diffusely diminished but clear, on RA Auscultation: Negative for crackles, rhonchi or wheezes Cardio regular rate, regular rhythm, S1 normal heart sound, S2 normal heart sound, no murmurs, no rub, no gallops and no clicks GI normal to inspection, nondistended, normoactive bowel sounds, soft to palpation and non-tender Extremity no clubbing, cyanosis or edema Extremity Narrative: Decreased lean muscle mass, radial and pedal pulses are 2+ Neuro moves all extremities and no focal motor deficits Speech: speech normal Psych Psych Narrative: pt very anxious and just had a panic attack Mood & Affect: anxious Assessment & Plan Assessment/Plan (1) Acute hypoxemic respiratory failure: (2) Acute HFrEF (heart failure with reduced ejection fraction): (3) Leukocytosis: (4) Thrombocytopenia: (5) Gait instability: (6) Lightheadedness: PLAN: Plan Acute hypoxic respiratory failure-suspect multifactorial (COPD and HFrEF exacerbations) -Resolved and patient is now on room air - Ambulatory pulse ox done on 07/11/2025 and patient did not require oxygen - Continue nebulizers - Continue prednisone taper - Continue I-S and Acapella - Outpatient follow-up with pulmonary medicine and cardiology Troponin elevation - secondary to demand ischemia related to respiratory distress and heart failure Acute thrombocytopenia - Platelet count normal on arrival at 218,000 - plts trending back up off of heparin - Avoid heparin and low molecular weight heparin products - HIT antibody (PF4 heparin antibody) remains pending at this time -If positive patient will need heparin placed as drug allergy - SCDs initiated for DVT prophylaxis Acute HFrEF secondary to nonischemic cardiomyopathy - Newly identified reduced ejection fraction at 25 to 30% - Cardiac catheterization showed no significant coronary disease in all vessels - Cardiology has initiated low-dose beta-korey, low-dose EARLENE, and low-dose diuretic - Continue Jardiance and will continue at discharge if able to obtain insurance coverage - Continue to monitor - Cardiology is following-->appreciate input Lightheadedness - orthostatic vitals are negative - improving as autoregulation adjusts with BP Gait instability - Continue PT/OT--> needs placement COPD - Suspect undiagnosed but patient has emphysematous changes on imaging - Once respiratory status stabilizes will need outpatient PFTs and 6-minute walk test - Continue treatment as noted above - May need chronic inhalers at the time of discharge - Encouraged ongoing tobacco cessation Substance abuse - Patient reported that she takes her sisters Valium on occasion - with respiratory status would avoid benzodiazepines and monitor for any signs of withdrawal - Also reported history of methamphetamine use Anxiety/Panic Disorder - start low dose Buspar - Avoid regular benzos with addiction history Tobacco abuse - Recommend cessation DVT prophylaxis - Discontinue heparin drip due to significant drop in platelet counts - SCDs ordered CODE STATUS - Full code Charges/Coding Visit Charges Inpatient E&M: 44941 Subs Hosp L2 Date medically ready for discharge: 07/11/25 Delay Comments: Needs placement
[2025-07-12] MEDS: 0.9% Saline Lock 10 ML Syringe IV (20:28)
[2025-07-12] MEDS: hydrOXYzine PAM 25 MG Capsule 50 MG PO (23:30)
[2025-07-13] VITALS (12 sets, daily range): BP systolic 76–97; BP diastolic 51–72; PULSE 69–83; RESP 16–20; TEMP 36.4–37; O2SAT 91–97; BMI 23.0
[2025-07-13 06:18] LABS: Hematocrit 36.7 % (37-47); Hemoglobin 12.3 g/dL (12.0-15.0); Mean Corp Hgb Conc 33.5 g/dL (32-36); Mean Corpuscular Volume 97.1 fL (81-99); Mean Platelet Vol. 13.5 fl (6.2-12.0); Platelet Count 111 K/mm3 (150-450); RBC Distribution Width CV 13.8 % (11.6-14.6); RBC Distribution Width SD 49.2 fl (35.1-43.9); Red Blood Count 3.78 M/mm3 (4.2-5.4); White Blood Count 9.6 K/mm3 (4.4-11.0)
[2025-07-13 06:22] LABS: Anion Gap 10 (7-18); BUN 22 mg/dL (4-19); BUN/Creat Ratio 29.5 RATIO (10-20); Calcium,Total 8.6 mg/dL (7.6-11.0); Carbon Dioxide 27.0 mmol/L (20.0-29.0); Chloride 101 mmol/L (96-106); Estimated Creatinine Clearance 77.48 ml/min (50-250); Glucose 171 mg/dL (70-99); Potassium 4.1 mmol/L (3.5-5.1)
[2025-07-13] MEDS: Metoprolol(XL)Succ 25 MG Tablet PO (09:22)
--- NOTE | 2025-07-13 11:25 | CASEMGMT ---
LENIN KNIGHT reviewed therapy notes, Pt would benefit from SNF. Into Pt room, pt resting in bed in no distress. Discussed DC plan with Pt, she is agreeable to SNF. LENIN KNIGHT asked DC planning and analysis manager for SNF list.
--- NOTE | 2025-07-13 11:40 | CASEMGMT ---
Discharge Planning A list of SNF providers including quality and resource use data and consistent with the patient's preferred geographic region, medical needs, and insurance network was created in [facility] Guide.? This list was provided to the patient. Maria Isabel Ventura, Discharge Planning Asst.
--- NOTE | 2025-07-13 12:36 | CASEMGMT ---
Addendum entered by Maria Isabel Ventura 07/13/25 15:58: [facility] declined. [facility] accepted. Pts foc is [facility]. They have been updated and asked to submit for precert. RN CM updated. Original Note: Discharge Planning Referral sent via [facility] to [facility], [facility], and [facility]. Maria Isabel Ventura DC Planning Asst.
[2025-07-13] MEDS: 0.9% Normal Saline (250mL Bag) 250 ML 125 ML IV (15:23)
--- NOTE | 2025-07-13 18:25 | PN.HOSP_ITS ---
Reason for Visit Chief Complaint: Shortness of breath Subjective Subjective Patient was seen and examined, she did not do well in physical therapy and it was recommended that she consider going to an extended care facility for short- term rehab services. Patient's systolic blood pressure today has been low, I made the decision to place her on midodrine and I gave her 250 cc of normal saline. Objective Data Objective Data Vital Signs: Vital Signs Temp Pulse Resp BP Pulse Ox O2 Del Method O2 Flow Rate 98.4 F 80 16 86/58 L 95 Room Air 2 07/13/25 17:28 07/13/25 17:28 07/13/25 17:28 07/13/25 17:28 07/13/25 17:28 07/13/25 17:28 07/10/25 13:00 FiO2 45 07/09/25 10:00 Oxygen Flow Rate (L/min) 2 Oxygen Delivery Method Room Air Weight: 69 kg Body Mass Index (BMI) 23.0 Intake & Output: Intake and Output for Last 24 Hours 07/11/25 07/12/25 07/13/25 23:59 23:59 23:59 Intake Total 720 / 720 1350 / 1350 610 / 610 Balance 720 / 720 1350 / 1350 610 / 610 Lab / Micro Data 07/13/25 05:28 07/13/25 05:28 Labs: Laboratory Results - last 24 hr 07/09/25 11:30: Miscellaneous Test COMMENT 07/13/25 05:28: WBC 9.6, RBC 3.78 L, Hgb 12.3, Hct 36.7 L, MCV 97.1, MCH 32.5 H, MCHC 33.5, RDW Std Deviation 49.2 H, RDW Coeff of Tabitha 13.8, Plt Count 111 L, MPV 13.5 H, Sodium 138, Potassium 4.1, Chloride 101, Carbon Dioxide 27.0, Anion Gap 10, BUN 22 H, Creatinine 0.74, Estim Creat Clear Calc 77.48, Est GFR (MDRD) Non- Af 90, BUN/Creatinine Ratio 29.5 H, Glucose 171 H, Calcium 8.6 Micro: Microbiology 07/08/25 07:30 Blood Culture (Wb) - Anticubital Left Blood Culture - Final No growth in 5 days. 07/08/25 09:30 Sputum, Expectorated/Coughed Gram Stain - Final 07/08/25 09:30 Sputum, Expectorated/Coughed Respiratory Culture - Final Mixed normal respiratory mirta. No Streptococcus pneumoniae, beta-hemolytic Streptococcus or Staphylococcus aureus isolated. 07/08/25 11:15 Mucosa - Nasopharyngeal Coronavirus COVID-19 PCR - Final 07/08/25 11:15 Mucosa - Nasopharyngeal Respiratory Panel (PCR) - Final 07/08/25 11:30 Urine, Clean Catch Legionella Antigen - Final 07/08/25 11:30 Urine, Clean Catch Streptococcus pneumoniae Antigen (M - Final 07/08/25 04:00 Mucosa - Nose SARS-CoV-2, Influenza & RSV (PCR) - Final Rhythm Strip Rhythm Strip: Sinus Rhythm (Sinus rhythm with occasional sinus tachycardia. No other significant arrhythmias appreciated) Physical Exam Const alert, oriented x3 and no apparent distress General Appearance: cooperative, well kempt and well developed Orientation / Consciousness: awake, oriented to person, oriented to place and oriented to time HEENT normocephalic, head/scalp atraumatic and moist oral mucous membranes Eyes PERRL, EOMs intact bilaterally and conjunctivae normal Neck supple, no JVD and thyroid normal General: trachea midline Resp normal respiratory effort, no retractions, no use of accessory muscles and clear to auscultation bilaterally Auscultation: Negative for rales, rhonchi or wheezes Cardio regular rate, regular rhythm, S1 normal heart sound, S2 normal heart sound, no murmurs, no rub and no gallops GI normal to inspection, nondistended, normoactive bowel sounds, soft to palpation, non-tender and non-distended Extremity no clubbing, cyanosis or edema Skin no rashes or lesions noted General Skin Exam: no breakdown Neuro oriented x3, CN's II-XII intact bilaterally, moves all extremities, no focal motor deficits and no sensory deficits noted Sensorium / Orientation: awake and alert Speech: speech normal Psych Psych Narrative: Patient has flat affect Assessment & Plan Assessment/Plan (1) Acute HFrEF (heart failure with reduced ejection fraction): PLAN: Plan 1. Acute systolic congestive heart failure-patient will remain on her current medications, they cannot be titrated upward due to her blood pressure. #2 acute debility secondary to nonischemic cardiomyopathy and deconditioning-PT and OT are seeing the patient, she will need [facility] for [facility] services #3 nonischemic cardiomyopathy-patient is currently on an ARB, beta-korey, and diuretic-these cannot be titrated upwards due to her low systolic blood pressure. #4 acute hypoxic respiratory failure secondary to #1-resolved at this time, patient is on room air #5 [id number]'s cardiac catheterization did not show occlusive coronary disease. Total clinical time spent by myself addressing the patient's medical issues, reviewing all of her data, and collaborating with patient's care team: 35- minutes Charges/Coding Visit Charges Inpatient E&M: 90643 Subs Hosp L2 Date medically ready for discharge: 07/11/25 Delay Comments: Needs placement
[2025-07-13] MEDS: 0.9% Saline Lock 10 ML Syringe IV (23:10)
[2025-07-13] MEDS: hydrOXYzine PAM 25 MG Capsule 50 MG PO (23:10)
[2025-07-14] VITALS (9 sets, daily range): BP systolic 83–101; BP diastolic 60–71; PULSE 58–86; RESP 16–18; TEMP 36.5–37; O2SAT 94–98; BMI 23.6
[2025-07-14] MEDS: Metoprolol(XL)Succ 25 MG Tablet PO (09:03)
--- NOTE | 2025-07-14 10:07 | CASEMGMT ---
Discharge Planning Requested updated physician note sent via [facility] to [facility]. Maria Isabel Ventura DC Planning Asst.
--- NOTE | 2025-07-14 10:37 | CASEMGMT ---
RN CM NOTE: Per therapy, pt exhibiting signs of depression. KARMA Irwin, made aware. Stefan BERTRAND RN CM
--- NOTE | 2025-07-14 12:12 | TREXTCAR_ITS ---
Diet Diet Order/Speech Therapy: INPATIENT Hospital Diet / Speech Therapy Order(s) 07/13/25 13:13 Diet: Regular - No Added Salt Food consistency:: Regular Liquid Consistency:: Regular/Thin Fluid restriction:: 2000 mL Routine Orders/Code Status Code Status: Full Code DC O2, CPAP, BIPAP needs Home O2 Discharge instructions: No Wound(s) R groin: Wound Type: Puncture Therapies Weight Bearing: Full weight bearing Physical Therapy: Eval and Treat Occupational Therapy: Eval and Treat Problem/Diagnosis (1) Acute HFrEF (heart failure with reduced ejection fraction): Status: Acute Code(s): I50.21 - Acute systolic (congestive) heart failure Plan 1. Acute systolic congestive heart failure-patient will remain on her current medications, they cannot be titrated upward due to her blood pressure. #2 acute debility secondary to nonischemic cardiomyopathy and deconditioning-PT and OT are seeing the patient, she will need temporary placement in a correction facility for rehab services #3 nonischemic cardiomyopathy-patient is currently on an ARB, beta-korey, and diuretic-these cannot be titrated upwards due to her low systolic blood pressure. #4 acute hypoxic respiratory failure secondary to #1-resolved at this time, patient is on room air #5 [id number]'s cardiac catheterization did not show occlusive coronary disease. Total clinical time spent by myself addressing the patient's medical issues, reviewing all of her data, and collaborating with patient's care team: 35-m inutes Allergies/Procedures Done in Hospital Allergies No Known Allergies Allergy (Verified 07/08/25 03:21) Procedures: 2-D Echocardiogram Type of Care/Length of Stay Estimated LOS: Convalescent Care Less Than 30 days Type of Care Needed: Skilled Rehab Potential: Good Prognosis: Good Additional Orders/Day of Discharge H&P will serve as current which was dated: 07/08/25 Day of Discharge: 07/15/25 Dietary and Speech Recommendations Dietitian Recommendations/Changes: Adjust to no added salt diet with fluid restriction per MD orders. Will monitor weight trends. Discharge Plan Admission Admit Date/Time: 07/08/25 07:06 Primary Reason for Your Visit: Congestive heart failure with reduced ejection fraction Attending Provider: Alex Knox Primary Care Provider: Swati Ackerman Consulting Providers: Lizeth Pichardo; Dallin Sellers; Alex Knox; Mehrdad Morelos; Lg Espinosa; Tono Escalante; Yaron Holder; Abdulaziz Steve; Gerald Black; Tc Lacey; Pete Bragg; Dallin Russell; Romario Nuñez; Omar Casanova; Gregory Malik; Matt Ortez; Lora Roberts; Jose Lees; Fei Oconnor; Reji Phillips NP; Marlee Huddleston PA; Panfilo Aburto; Opal Nina Discharge Orders/Prescriptions Prescriptions: New ipratropium-albuterol 0.5 mg-3 mg(2.5 mg base)/3 mL Solution For Nebulization 3 ml inhalation Q6HWA.RT Qty: 0 0RF midodrine 5 mg Tablet 10 mg PO TIDCM Qty: 0 0RF acetaminophen 500 mg Tablet 1,000 mg PO Q8H PRN PRN (Reason: Pain 1-10 Or Fever) Qty: 0 0RF furosemide 20 mg Tablet 20 mg PO DAILY Qty: 0 0RF metoprolol succinate 25 mg Tablet Extended Release 24 Hr 25 mg PO DAILY Qty: 0 0RF lisinopril 2.5 mg Tablet 2.5 mg PO DAILY Qty: 0 0RF hydroxyzine pamoate 25 mg Capsule 50 mg PO QHS PRN PRN (Reason: Anxiety/Restlessness/Sleep) Qty: 0 0RF Jardiance 10 mg Tablet 10 mg PO DAILY Qty: 0 0RF Continued levothyroxine 88 mcg tablet 88 mcg PO DAILY Referrals / Follow Up: Swati Ackerman DO [Primary Care Provider, Family Practice] Care Physician,No Primary [Non-Staff, Medical] Disposition Disposition (needs filled in before D/C Order can be placed): Retirement Facility
--- NOTE | 2025-07-14 12:52 | CASEMGMT ---
RN CM NOTE: 7,000 completed in [facility]. [facility] notified. Stefan BERTRAND RN CM
--- NOTE | 2025-07-14 20:20 | PCM.PN.HOSP ---
Reason for Visit Chief Complaint: Shortness of breath Subjective Subjective Patient was seen and examined today, I briefly discussed going on antidepressant with the patient because she appears to have a depressed affect, she states that she would consent to being placed on an antidepressant. Patient has been on Zoloft in the past so I started her on 50 mg Zoloft daily. Systolic blood pressures have been low at times on the patient. Objective Data Objective Data Vital Signs: Vital Signs Temp Pulse Resp BP Pulse Ox O2 Del Method O2 Flow Rate 98.3 F 73 16 83/60 L 94 Room Air 1.5 07/14/25 16:42 07/14/25 16:42 07/14/25 16:42 07/14/25 16:42 07/14/25 16:42 07/14/25 16:42 07/13/25 20:27 FiO2 45 07/09/25 10:00 Oxygen Flow Rate (L/min) 1.5 Oxygen Delivery Method Room Air Weight: 70.3 kg Body Mass Index (BMI) 23.6 Intake & Output: Intake and Output for Last 24 Hours 07/12/25 07/13/25 07/14/25 23:59 23:59 23:59 Intake Total 1350 / 1350 610 / 610 540 / 540 Balance 1350 / 1350 610 / 610 540 / 540 Lab / Micro Data 07/13/25 05:28 07/13/25 05:28 Micro: Microbiology 07/08/25 07:30 Blood Culture (Wb) - Anticubital Left Blood Culture - Final No growth in 5 days. 07/08/25 09:30 Sputum, Expectorated/Coughed Gram Stain - Final 07/08/25 09:30 Sputum, Expectorated/Coughed Respiratory Culture - Final Mixed normal respiratory mirta. No Streptococcus pneumoniae, beta-hemolytic Streptococcus or Staphylococcus aureus isolated. 07/08/25 11:15 Mucosa - Nasopharyngeal Coronavirus COVID-19 PCR - Final 07/08/25 11:15 Mucosa - Nasopharyngeal Respiratory Panel (PCR) - Final 07/08/25 11:30 Urine, Clean Catch Legionella Antigen - Final 07/08/25 11:30 Urine, Clean Catch Streptococcus pneumoniae Antigen (M - Final 07/08/25 04:00 Mucosa - Nose SARS-CoV-2, Influenza & RSV (PCR) - Final Rhythm Strip Rhythm Strip: Sinus Rhythm (Sinus rhythm with occasional sinus tachycardia. No other significant arrhythmias appreciated) Physical Exam Narrative alert, oriented x3 and no apparent distress General Appearance: cooperative, well kempt and well developed Orientation / Consciousness: awake, oriented to person, oriented to place and oriented to time HEENT normocephalic, head/scalp atraumatic and moist oral mucous membranes Eyes PERRL, EOMs intact bilaterally and conjunctivae normal Neck supple, no JVD and thyroid normal General: trachea midline Resp normal respiratory effort, no retractions, no use of accessory muscles and clear to auscultation bilaterally Auscultation: Negative for rales, rhonchi or wheezes Cardio regular rate, regular rhythm, S1 normal heart sound, S2 normal heart sound, no murmurs, no rub and no gallops GI normal to inspection, nondistended, normoactive bowel sounds, soft to palpation, non-tender and non-distended Extremity no clubbing, cyanosis or edema Skin no rashes or lesions noted General Skin Exam: no breakdown Neuro oriented x3, CN's II-XII intact bilaterally, moves all extremities, no focal motor deficits and no sensory deficits noted Sensorium / Orientation: awake and alert Speech: speech normal Psych Psych Narrative: Patient has flat affect Assessment & Plan Assessment/Plan (1) Acute on chronic systolic and diastolic heart failure, NYHA class 3: (2) Acute HFrEF (heart failure with reduced ejection fraction): PLAN: Plan 1. Acute systolic congestive heart failure-patient will remain on her current medications, they cannot be titrated upward due to her low blood pressure. #2 acute debility secondary to nonischemic cardiomyopathy and deconditioning-PT and OT are seeing the patient, she will need temporary placement in [place] [facility] for [facility] services #3 nonischemic cardiomyopathy-patient is currently on an ARB, beta-korey, and diuretic-these cannot be titrated upwards due to her low systolic blood pressure. #4 acute hypoxic respiratory failure secondary to #1-resolved at this time, patient is on room air #5 [id number]'s cardiac catheterization did not show occlusive coronary disease. #6 chronic depression-patient has agreed to a trial of antidepressant, I placed her on Zoloft 50 mg daily, she will need follow-up in [place] [facility] Total clinical time spent by myself addressing the patient's medical issues, reviewing all of her data, and collaborating with patient's care team: 35-minutes Charges/Coding Visit Charges Inpatient E&M: 51295 Subs Hosp L2 Date medically ready for discharge: 07/11/25 Delay Comments: Needs placement
[2025-07-14] MEDS: 0.9% Saline Lock 10 ML Syringe IV (20:39)
[2025-07-15] VITALS (8 sets, daily range): BP systolic 80–114; BP diastolic 60–73; PULSE 64–91; RESP 16–17; TEMP 36.3–36.9; O2SAT 94–97; BMI 23.5
[2025-07-15] MEDS: hydrOXYzine PAM 25 MG Capsule 50 MG PO (00:26)
--- NOTE | 2025-07-15 09:09 | CASEMGMT ---
[facility] has obtained auth to admit. RN CM and physician updated Maria Isabel Ventura DC Planning Asst.
--- NOTE | 2025-07-15 10:50 | PCM.DC.SUM ---
Providers Date of Admission: 07/08/25 Date of Discharge: 07/15/25 Primary Care Physician: Dr. Swati Ackerman, DO Consultations 07/08/25 07:49 Consult: Cardiology Routine Consulting Provider: Shayna Muñoz Reason for Consult: Non-STEMI EMERGENT Consult: Yes Notified: Yes Date Notified: 07/08/25 Time Notified: 07:49 Method of Notification: ED Physician Initiated 07/08/25 09:36 Consult: Municipal Maintenance Worker / Pulmonary Medicine Routine Consulting Provider: Intensivists/Pulmonary Med Reason for Consult: Respiratory failure, chronic obstructive pulmonary disease EMERGENT Consult: No Notified: Yes Date Notified: 07/08/25 Time Notified: 09:36 Method of Notification: Verbal Reason For Visit: ACUTE HYPOXIC RESPIRATORY FAILURE Diagnosis Discharge Diagnosis (1) Acute on chronic systolic and diastolic heart failure, NYHA class 3: Status: Chronic Code(s): I50.43 - Acute on chronic combined systolic (congestive) and diastolic (congestive) heart failure (2) Acute HFrEF (heart failure with reduced ejection fraction): Status: Acute Code(s): I50.21 - Acute systolic (congestive) heart failure Plan 1. Acute systolic congestive heart failure-patient will remain on her current medications, they cannot be titrated upward due to her low blood pressure. #2 acute debility secondary to nonischemic cardiomyopathy and deconditioning-PT and OT are seeing the patient, she will need temporary placement in a [facility] facility for rehab services #3 nonischemic cardiomyopathy-patient is currently on an ARB, beta-korey, and diuretic-these cannot be titrated upwards due to her low systolic blood pressure. #4 acute hypoxic respiratory failure secondary to #1-resolved at this time, patient is on room air #5 [id number]'s cardiac catheterization did not show occlusive coronary disease. #6 chronic depression-patient has agreed to a trial of antidepressant, I placed her on Zoloft 50 mg daily, she will need follow-up in the [facility] facility #7 emphysema Total clinical time spent by myself addressing the patient's medical issues, reviewing all of her data, and collaborating with patient's care team: 35-minutes Medications at Discharge Home Medications levothyroxine 88 mcg tablet 88 mcg PO DAILY Hypothroidsm 07/08/25 acetaminophen 500 mg tablet 1,000 mg (2 x 500 mg) PO Q8H PRN PRN Pain 1-10 Or Fever #0 tabs 07/14/25 empagliflozin 10 mg tablet (Jardiance) 10 mg PO DAILY #0 tabs 07/14/25 furosemide 20 mg tablet 20 mg PO DAILY #0 tabs 07/14/25 hydroxyzine pamoate 25 mg capsule 50 mg (2 x 25 mg) PO QHS PRN PRN Anxiety/Restlessness/Sleep #0 caps 07/14/25 ipratropium 0.5 mg-albuterol 3 mg (2.5 mg base)/3 mL nebulization soln 3 ml inhalation Q6HWA.RT #0 mL 07/14/25 lisinopril 2.5 mg tablet 2.5 mg PO DAILY #0 tabs 07/14/25 metoprolol succinate 25 mg tablet,extended release 24 hr 25 mg PO DAILY #0 tabs 07/14/25 midodrine 5 mg tablet 10 mg (2 x 5 mg) PO TIDCM #0 tabs 07/14/25 sertraline 50 mg tablet (Zoloft) 50 mg PO DAILY #1 TAB 07/15/25 Hospital Course Operations None Procedures 2-D Echocardiogram Summary of Care Provided Minutes Spent on Discharge: 32 Hospital Course: This 65-year-old white female was seen in the emergency room at [facility] with complaints of shortness of breath. Patient stated she had never been formally diagnosed with COPD but believes that she may have it due to her smoking history. Patient does not have oxygen at home. Patient had been seen in outside hospital but checked herself out AMA would not allow any testing to be done. Workup in the emergency room included CBC which was abnormal for white blood cell count of 16.7, chemistry profile was remarkable for sodium of 124, glucose of 153, patient's troponin was elevated at 973, repeat troponin in 2 hours was elevated at 1048. Patient's beta natruretic peptide was elevated at 1598. CT of the chest was performed that showed no PE but severe emphysematous changes as well as changes of interstitial lung disease and honeycombing with the addition of possible pulmonary edema. Patient had be placed on BiPAP to maintain her pulse ox above 90%. Patient was admitted to PCU for acute congestive heart failure, echocardiogram was obtained and showed an ejection fraction of 25 to 30%. Patient's medications were adjusted, due to hypotension, the amount of medication for her cardiomyopathy was limited. Patient was seen by PT and OT but did not do well with physical therapy and it was felt that she would benefit from short-term admission to a [facility] facility for rehab services. On 07/15/2025, patient was seen and examined:alert, oriented x3 and no apparent distress General Appearance: cooperative, well kempt and well developed Orientation / Consciousness: awake, oriented to person, oriented to place and oriented to time HEENT normocephalic, head/scalp atraumatic and moist oral mucous membranes Eyes PERRL, EOMs intact bilaterally and conjunctivae normal Neck supple, no JVD and thyroid normal General: trachea midline Resp normal respiratory effort, no retractions, no use of accessory muscles and clear to auscultation bilaterally Auscultation: Negative for rales, rhonchi or wheezes Cardio regular rate, regular rhythm, S1 normal heart sound, S2 normal heart sound, no murmurs, no rub and no gallops GI normal to inspection, nondistended, normoactive bowel sounds, soft to palpation, non-tender and non-distended Extremity no clubbing, cyanosis or edema Skin no rashes or lesions noted General Skin Exam: no breakdown Neuro oriented x3, CN's II-XII intact bilaterally, moves all extremities, no focal motor deficits and no sensory deficits noted Sensorium / Orientation: awake and alert Speech: speech normal Psych Psych Narrative: Patient has flat affect Patient was transferred to an extended care facility on 07/15/2025 in stable condition Weight / BMI Weight Weight: 70.2 kg Body Mass Index (BMI) 23.5 ABG / Lab / Microbiology Data 07/13/25 05:28 07/13/25 05:28 Microbiology: Microbiology 07/08/25 07:30 Blood Culture (Wb) - Anticubital Left Blood Culture - Final No growth in 5 days. 07/08/25 09:30 Sputum, Expectorated/Coughed Gram Stain - Final 07/08/25 09:30 Sputum, Expectorated/Coughed Respiratory Culture - Final Mixed normal respiratory mirta. No Streptococcus pneumoniae, beta-hemolytic Streptococcus or Staphylococcus aureus isolated. 07/08/25 11:15 Mucosa - Nasopharyngeal Coronavirus COVID-19 PCR - Final 07/08/25 11:15 Mucosa - Nasopharyngeal Respiratory Panel (PCR) - Final 07/08/25 11:30 Urine, Clean Catch Legionella Antigen - Final 07/08/25 11:30 Urine, Clean Catch Streptococcus pneumoniae Antigen (M - Final 07/08/25 04:00 Mucosa - Nose SARS-CoV-2, Influenza & RSV (PCR) - Final D/C Instructions DC O2, CPAP, BIPAP Needs Home O2 Discharge instructions: No Meaningful Use Info Meaningful Use Meaningful Use Diagnoses (Choose all that apply): CHF CHF EARLENE/ARB ordered at discharge?: Yes Documented LVEF (%): 25 Discharge Plan Admission Admit Date/Time: 07/08/25 07:06 Primary Reason for Your Visit: Congestive heart failure with reduced ejection fraction Attending Provider: Alex Knox Primary Care Provider: Swati Ackerman Consulting Providers: Lizeth Pichardo; Dallin Sellers; Alex Knox; Mehrdad Morelos; Lg Espinosa; Tono Escalante; Yaron Holder; Abdulaziz Steve; Gerald Black; Tc Lacey; Pete Bragg; Dallin Russell; Romario Nuñez; Omar Casanova; Gregory Malik; Matt Ortez; Lora Roberts; Jose Lees; Fei Oconnor; Reji Phillips NP; Marlee Huddleston PA; Panfilo Aburto; Opal Nina Discharge Orders/Prescriptions Prescriptions: New ipratropium-albuterol 0.5 mg-3 mg(2.5 mg base)/3 mL Solution For Nebulization 3 ml inhalation Q6HWA.RT Qty: 0 0RF midodrine 5 mg Tablet 10 mg PO TIDCM Qty: 0 0RF acetaminophen 500 mg Tablet 1,000 mg PO Q8H PRN PRN (Reason: Pain 1-10 Or Fever) Qty: 0 0RF furosemide 20 mg Tablet 20 mg PO DAILY Qty: 0 0RF metoprolol succinate 25 mg Tablet Extended Release 24 Hr 25 mg PO DAILY Qty: 0 0RF lisinopril 2.5 mg Tablet 2.5 mg PO DAILY Qty: 0 0RF hydroxyzine pamoate 25 mg Capsule 50 mg PO QHS PRN PRN (Reason: Anxiety/Restlessness/Sleep) Qty: 0 0RF Jardiance 10 mg Tablet 10 mg PO DAILY Qty: 0 0RF sertraline [Zoloft] 50 mg tablet 50 mg PO DAILY Qty: 1 0RF Continued levothyroxine 88 mcg tablet 88 mcg PO DAILY Referrals / Follow Up: Swati Ackerman DO [Primary Care Provider, Family Practice] Care Physician,No Primary [Non-Staff, Medical] Disposition Disposition (needs filled in before D/C Order can be placed): [facility] Charges/Coding Visit Charges Inpatient E&M: 70189 Disch Hosp >30min
--- NOTE | 2025-07-15 11:39 | PHA.DC.MR.R ---
[facility] [place] Med Reconciliation Pharmacy Service has performed discharge medication reconciliation for this patient. The patient's discharge medication list was reviewed for discrepancies and discrepancies were resolved. Medications at Discharge Home Medications levothyroxine 88 mcg tablet 88 mcg PO DAILY Hypothroidsm 07/08/25 acetaminophen 500 mg tablet 1,000 mg (2 x 500 mg) PO Q8H PRN PRN Pain 1-10 Or Fever #0 tabs 07/14/25 empagliflozin 10 mg tablet (Jardiance) 10 mg PO DAILY #0 tabs 07/14/25 furosemide 20 mg tablet 20 mg PO DAILY #0 tabs 07/14/25 hydroxyzine pamoate 25 mg capsule 50 mg (2 x 25 mg) PO QHS PRN PRN Anxiety/Restlessness/Sleep #0 caps 07/14/25 ipratropium 0.5 mg-albuterol 3 mg (2.5 mg base)/3 mL nebulization soln 3 ml inhalation Q6HWA.RT #0 mL 07/14/25 lisinopril 2.5 mg tablet 2.5 mg PO DAILY #0 tabs 07/14/25 metoprolol succinate 25 mg tablet,extended release 24 hr 25 mg PO DAILY #0 tabs 07/14/25 midodrine 5 mg tablet 10 mg (2 x 5 mg) PO TIDCM #0 tabs 07/14/25 sertraline 50 mg tablet (Zoloft) 50 mg PO DAILY #1 TAB 07/15/25
--- NOTE | 2025-07-15 14:11 | CASEMGMT ---
Discharge Planning Discharge orders, signed med list, and transport time sent via [facility] to [facility]. Physicians will transport pt by wheelchair at 3:15p. Nursing, SW, pt, and her sigother (Onesimo) updated. Maria Isabel Ventura DC Planning Asst.
--- NOTE | 2025-07-15 14:48 | NURSING ---
Report called to JAYJAY gregory at [facility]
== END 2025-07-15 16:17 | disposition skilled nursing facility (03) | DRG 192 ==
LOC: ED 07:18 → ICU 07:50 → PCU 07-11 09:26
PROVIDERS: Internal Medicine; Admitting Provider Internal Medicine; Emergency Provider Emergency Medicine; PCP Family Medicine; Visit Provider Internal Medicine
DX: I50.21 Acute systolic (congestive) heart failure (principal); J96.01 Acute respiratory failure with hypoxia; D69.6 Thrombocytopenia, unspecified; I24.89 Other forms of acute ischemic heart disease; E87.1 Hypo-osmolality and hyponatremia; J44.9 Chronic obstructive pulmonary disease, unspecified; E03.9 Hypothyroidism, unspecified; F32.A Depression, unspecified; I42.8 Other cardiomyopathies; F17.210 Nicotine dependence, cigarettes, uncomplicated; F41.9 Anxiety disorder, unspecified; I95.1 Orthostatic hypotension; Z79.899 Other long term (current) drug therapy
CPT/HCPCS: 36415; 71275; 80048; 80053; 80061; 80202; 82803; 83036; 83605; 83735; 83880; 84100; 84145; 84443; 84484; 85025; 85027; 85049; 85610; 85730; 86140; 87040; 87070; 87205; 87449; 87631; 87633; 87635; 93005; 93306; 93454; 93458; 94002; 94640; 94660; 94762; 97116; 97162; 97166; 97530; 97535; 97802; 99152; 99252; 99285; C1894; Q9967; A4216; C1760; C1769; G0463; J1938